=== PATIENT | female | born 1980 | race Caucasian/White ===

== ENCOUNTER 2021-05-08 18:46 | Inpatient (IN) | payer MEDICARE, MEDICAID, SELFPAY ==
[2021-05-08 19:34] VITALS: BP 150/78; PULSE 63; RESP 18; TEMP 37.1; O2SAT 98; BMI 49.9
[2021-05-08 20:49] LABS: COVID-19 Test Negative (Negative)
[2021-05-08 20:53] LABS: Appearance Urine HAZY; Color Urine YELLOW; Glucose Urine UA NEG (NEG); Leukocyte Esterase Urine NEG (NEG); Nitrite Urine NEG (NEG); Specific Gravity - Urine 1.025 (1.005-1.025); UPreg QC Valid YES; Urine Blood NEG (NEG); Urine Ketones NEG (NEG); Urine Pregnancy NEGATIVE (NEGATIVE); Urine Protein NEG (NEG-TRACE)
[2021-05-08 21:02] LABS: Amphetamine Screen Urine Not Detected (Not Detect); Barbiturates, Urine Not Detected (Not Detect); Benzodiazepines Screen Urine Not Detected (Not Detect); Cannabinoid Screen Urine Not Detected (Not Detect); Cocaine Screen Urine Not Detected (Not Detect); Fentanyl, urine Not Detected (Not Detect); Opiate Screen Urine Not Detected (Not Detect); Phencyclidine Screen Urine Not Detected (Not Detect)
[2021-05-08 21:54] LABS: Basophils Percent Auto 0.3 % (0-2); Eosinophils Absolute Auto 0.1 X10*3/uL (0.0-0.4); Eosinophils Percent Auto 0.7 % (0-4); Hematocrit 32.9 % (37.0-47.0); Hemoglobin 10.2 g/dl (12.0-16.0); Imm Gran Abs Auto 0.05 X10*3/uL (0.00-0.03); Imm Gran Pct Auto 0.4 % (0.0-0.4); Lymphocytes Absolute Auto 3.5 X10*3/uL (1.2-4.9); Lymphocytes Percent Auto 25.1 % (20-40); MANUAL DIFF FLAG NO; Mean Corpuscular Hemoglobin 25.8 pg (27.0-33.0); Mean Corpuscular Volume 83.3 fL (80.0-98.0); Mean Platelet Volume 10.7 fL (9.4-12.3); Monocytes Absolute Auto 0.5 X10*3/uL (0.1-1.2); Monocytes Percent Auto 3.5 % (2-11); Neutrophils Absolute Auto 9.8 x10*3/uL (2.0-8.3); Platelet Count 373 X10*3/uL (160-400); Red Blood Count 3.95 X10*6/uL (4.20-5.50); Red Cell Distribution Width 17.4 % (11.0-16.0)
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
[2021-05-08 22:02] LABS: Amorphous Sediment Urine TRACE /LPF; Mucus Urine 1+ /LPF; RBC Urine 0 /HPF (0); Squamous Epithelial Cell Urine 2+ /LPF; WBC Urine 0-2 /HPF (0-4)
[2021-05-08 22:13] LABS: Ethanol < 10 mg/dL
[2021-05-08 22:15] LABS: Anion Gap 11 (12-20); Blood Urea Nitrogen 10 mg/dL (9-16); Carbon Dioxide 23 mmol/L (22-29); Chloride 109 mmol/L (96-108); Creatinine Clr Calc Pharmacy 105.7; Estimated Glomerular Filt Rate > 60; Glucose Random 89 mg/dL (60-115); Potassium 3.5 mmol/L (3.3-5.1); Sodium 139 mmol/L (135-145)
[2021-05-08] MEDS: OLANZapine 10 MG TABLET 20 MG PO (23:08)
[2021-05-09 06:40] VITALS: BP 132/69; PULSE 74; RESP 16; TEMP 37.2; O2SAT 98
--- NOTE | 2021-05-09 06:41 | PC.NURSE ---
Patient slept through the night, no distress reported at this time, patient was out of room x 3, demanding discharges yelling and screaming at staff telling that she was held against her will, medication compliant, patient is paranoid and delusional, care team evaluated the patient, disposition is section 12 inpatient bed search, behavior aggressive, volatile, and labile. will continue to monitor.
--- NOTE | 2021-05-09 07:22 | PC.NURSE ---
patient appears to remain at rest respirations are even and unlabored, patient appears in no distress
[2021-05-09 13:32] VITALS: BP 132/69; PULSE 74
[2021-05-09] MEDS: Losartan Potassium 50 MG TABLET PO (13:32)
[2021-05-09] MEDS: Apixaban 5 MG TABLET PO ×2 (13:32→21:02)
[2021-05-09] MEDS: Acetaminophen 325 MG TABLET 650 MG PO (13:59)
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
--- NOTE | 2021-05-09 15:53 | PC.NURSE ---
rn to rn with jelani.
--- NOTE | 2021-05-09 16:02 | ECG_ITS ---
Test Reason : MED CLEARANCE Blood Pressure : / mmHG Vent. Rate : 063 BPM Atrial Rate : 063 BPM P-R Int : 156 ms QRS Dur : 086 ms QT Int : 428 ms P-R-T Axes : 008 -02 020 degrees QTc Int : 437 ms Normal sinus rhythm Intra-ventricular conduction delay Nonspecific T wave abnormality Abnormal ECG When compared with ECG of 04-APR-2018 20:02, T wave amplitude has decreased in Inferior leads Lateral leads Referred By: Henrik Morse Electronically Signed By:PREM KISER MD
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
[2021-05-09 20:34] VITALS: BP 123/63; PULSE 61; RESP 18; TEMP 35.5; O2SAT 95
[2021-05-09] MEDS: Topiramate 100 MG TABLET 200 MG PO (21:02)
[2021-05-09] MEDS: OLANZapine 10 MG TABLET 20 MG PO (21:02)
[2021-05-09] MEDS: Prazosin HCL 1 MG CAPSULE 2 MG PO (21:02)
[2021-05-10] MEDS: Acetaminophen 325 MG TABLET 650 MG PO (04:26)
[2021-05-10 06:00] VITALS: BP 124/83; PULSE 74; RESP 20; TEMP 36.4; O2SAT 100
[2021-05-10 08:33] LABS: Estimated Average Glucose 103 mg/dL; Hemoglobin A1c % 5.2 %
[2021-05-10 08:34] LABS: D Dimer High Sensitivity < 150 NG/ML
[2021-05-10 08:36] LABS: Alanine Aminotransferase 14 U/L (0-31); Alkaline Phosphatase 83 U/L (39-117); Aspartate Amino Transferase 13 U/L (5-31); Bilirubin Direct < 0.2 mg/dL (0.0-0.5); Bilirubin Total 0.3 mg/dL (0.0-1.0); Cholesterol 170 mg/dL; HDL Cholesterol 51 mg/dL; LDL Cholesterol Calculated 104 mg/dl; Magnesium 2.1 mg/dL (1.6-2.6); Total Protein 6.9 g/dL (6.5-8.0); Triglycerides 78 mg/dL
[2021-05-10 08:57] LABS: TSH reflex Free T4 2.12 uIU/mL (0.32-4.0)
[2021-05-10 09:18] VITALS: BP 124/83; PULSE 100
[2021-05-10] MEDS: Apixaban 5 MG TABLET PO ×2 (09:18→20:37)
[2021-05-10] MEDS: Losartan Potassium 50 MG TABLET PO (09:18)
[2021-05-10 12:45] VITALS: BP 124/83; PULSE 100
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
[2021-05-10 20:25] VITALS: BP 126/72; PULSE 62; RESP 18; TEMP 36.4; O2SAT 97
[2021-05-10 20:36] VITALS: BP 126/72; PULSE 62
[2021-05-10] MEDS: Prazosin HCL 1 MG CAPSULE 2 MG PO (20:36)
[2021-05-10] MEDS: OLANZapine 10 MG TABLET 20 MG PO (20:36)
[2021-05-10] MEDS: Topiramate 100 MG TABLET 200 MG PO (20:36)
[2021-05-10] MEDS: Sennosides 8.6 MG TABLET PO (20:37)
[2021-05-11] MEDS: Magnesium Hydrox/Alum Hydrox 30 ML ORAL.SUSP PO ×3 (02:17→18:27)
[2021-05-11] MEDS: hydrOXYzine HCL 25 MG TABLET PO ×2 (02:17→21:12)
[2021-05-11 06:00] VITALS: BP 119/80; PULSE 100; RESP 16; TEMP 36.2; O2SAT 100
[2021-05-11 08:53] VITALS: BP 119/80; PULSE 100
[2021-05-11] MEDS: Losartan Potassium 50 MG TABLET PO (08:53)
[2021-05-11] MEDS: Apixaban 5 MG TABLET PO ×2 (08:53→21:13)
[2021-05-11] MEDS: Omeprazole 20 MG CAPSULE.DR PO (13:52)
--- NOTE | 2021-05-11 15:20 | HO.PSYCHPN ---
Subjective Subjective Date of Service: 05/11/21 Reason For Visit: psychosis Interim History: Patient seen and discussed. She reports she feels well this morning. She has a history of reflux and takes prilosec at home. Restarted. She denies depression. Denies SI. Denies AVH. She is engaged in the milieu. She is social with peers. Doesn't appear to be paranoid or responding to IS. Review of Systems Review of Systems CVS: No c/o chest pain, palpitations, no SOB [employer]: No c/o dizziness. reports having migraine ZHU. GI: No c/o Nausea, Vomiting, diarrhea, constipation or heartburn Mental Status Exam Mental Status Exam Narrative: Pt was A&O. In hospital attire, not malodorous, overweight. Good eye contact, inattentive. No Tics or Tremors. No abnormal involuntary movements. Somewhat guarded. Non-pressured speech, spontaneous with regular rate and rhythm, normal volume and prosody. No prolonged speech latency or dysarthria. Mood is ?anxious,? affect is constricted. Denies SI/SIB/HI upon inquiry. Denies A/VH or delusional thought content. Thoughts are concrete, linear, has known intellectual disability with IQ <70. Insight/ Judgment limited but adequate. Diagnostics Vital Signs (24Hr): Vital Signs - 24 hr 05/11/21 06:00 05/11/21 08:53 05/11/21 18:00 Temperature 97.1 F 98.2 F Pulse Rate 100 100 77 Respiratory Rate 16 18 Blood Pressure 119/80 119/80 118/72 Pulse Oximetry 100 100 05/11/21 21:12 Temperature Pulse Rate 77 Respiratory Rate Blood Pressure 118/80 Pulse Oximetry Body Mass Index 49.9 Labs Results: 05/08/21 21:48 05/08/21 21:48 Labs: Laboratory Results - last 48 hr 05/10/21 05/10/21 05/10/21 07:51 07:51 07:51 D-Dimer High Sensitivty < 150 Estimat Average Glucose 103 Hemoglobin A1c % 5.2 Magnesium 2.1 Total Bilirubin 0.3 Direct Bilirubin < 0.2 AST 13 ALT 14 Alkaline Phosphatase 83 Total Protein 6.9 Albumin 4.0 Triglycerides 78 Cholesterol 170 LDL Cholesterol, Calc 104 HDL Cholesterol 51 TSH 2.12 Medications Medications Current Medications Acetaminophen (Acetaminophen 325 Mg Tablet) 650 mg PO Q6H PRN PRN Reason: Headache/Pain Mild Scale (1-3) Last Admin: 05/11/21 21:12 Dose: 650 mg Documented by: Al Hydroxide/Mg Hydroxide (Magnesium Hydrox/Alum Hydrox 30 Ml Oral.Susp) 30 ml PO Q6H PRN PRN Reason: Heartburn/Nausea Last Admin: 05/11/21 18:27 Dose: 30 ml Documented by: Apixaban (Apixaban 5 Mg Tablet) 5 mg PO BID MARK Last Admin: 05/11/21 21:13 Dose: 5 mg Documented by: Docusate Sodium (Docusate Sodium 100 Mg Capsule) 100 mg PO BID PRN PRN Reason: Constipation Hydroxyzine HCl (Hydroxyzine Hcl 25 Mg Tablet) 25 mg PO TID PRN PRN Reason: Anxiety Last Admin: 05/11/21 21:12 Dose: 25 mg Documented by: Losartan Potassium (Losartan Potassium 50 Mg Tablet) 50 mg PO DAILY MARK; Protocol Last Admin: 05/11/21 08:53 Dose: 50 mg Documented by: Magnesium Hydroxide (Milk Of Magnesia 30 Ml Oral.Susp) 30 ml PO DAILY PRN PRN Reason: Constipation Nicotine Polacrilex (Nicotine Polacrilex 2 Mg Gum) 2 mg BUCCAL Q2H PRN PRN Reason: Nicotine Cravings Olanzapine (Olanzapine 10 Mg Tablet) 20 mg PO BEDTIME MARK Last Admin: 05/11/21 21:12 Dose: 20 mg Documented by: Omeprazole (Omeprazole 20 Mg Capsule.) 20 mg PO DAILY@0630 [facility] Last Admin: 05/11/21 13:52 Dose: 20 mg Documented by: Prazosin HCl (Prazosin Hcl 1 Mg Capsule) 2 mg PO BEDTIME MARK; Protocol Last Admin: 05/11/21 21:12 Dose: 2 mg Documented by: Senna (Sennosides 8.6 Mg Tablet) 8.6 mg PO BEDTIME MARK Last Admin: 05/11/21 21:13 Dose: 8.6 mg Documented by: Topiramate (Topiramate 100 Mg Tablet) 200 mg PO BEDTIME MARK Last Admin: 05/11/21 21:13 Dose: 200 mg Documented by: Trazodone HCl (Trazodone Hcl 50 Mg Tablet) 50 mg PO BEDTIME PRN PRN Reason: Insomnia Allergies Allergies Allergy/AdvReac Type Severity Reaction Status Date / Time lorazepam [From ATIVAN] Allergy Mild HEART Unverified 03/07/20 19:34 STOPPED codeine [CODEINE] Allergy Unknown SWELLING Unverified 03/07/20 19:34 ziprasidone [From GEODON] Allergy Unknown HEART STOPS Unverified 03/07/20 19:34 Tetanus Vaccines and Toxoid AdvReac Mild HEART Unverified 03/07/20 19:34 [TETANUS VACCINES AND TOXOID] STOPPED Assessment & Plan Assessment & Plan (1) Post traumatic stress disorder (PTSD): Status: Acute Code(s): F43.10 - Post-traumatic stress disorder, unspecified (2) Bipolar 1 disorder: Status: Acute Code(s): F31.9 - Bipolar disorder, unspecified (3) Borderline personality disorder: Status: Acute Code(s): F60.3 - Borderline personality disorder (4) Mild intellectual disability: Status: Acute Code(s): F70 - Mild intellectual disabilities Assessment and Plan: Ashley a 41-year-old female who carries a dx of PTSD, BPD, mild intellectual disability, and bipolar I Disorder. Pt reports she is anxious and is presenting with paranoid delusional thought content. She has a hx of trauma, on prazosin 1 mg QHS and reports she continues to experience nightmares. Willing to trial an increase in prazosin to 2 mg QHS. No other med changes made, will defer to primary team in the AM. Will order lab work. Pt reports multiple somatic complaints, will order TSH, T4, D Dimer sens, Lipids, A1c, PT eval. Monitor response to medications. Monitor for safety in the milieu. Discharge on stabilization. Patient seen. Chart reviewed. Discussed with team. Obtain collateral contact info?as needed I spent minutes with the patient and/or on the patient floor today, greater than?50% of which was spent counseling/coordinating care. Reason for contiued inpatient stay Substantial Risk for: harm to self
[2021-05-11 18:00] VITALS: BP 118/72; PULSE 77; RESP 18; TEMP 36.8; O2SAT 100
[2021-05-11 21:12] VITALS: BP 118/80; PULSE 77
[2021-05-11] MEDS: Prazosin HCL 1 MG CAPSULE 2 MG PO (21:12)
[2021-05-11] MEDS: OLANZapine 10 MG TABLET 20 MG PO (21:12)
[2021-05-11] MEDS: Acetaminophen 325 MG TABLET 650 MG PO (21:12)
[2021-05-11] MEDS: Topiramate 100 MG TABLET 200 MG PO (21:13)
[2021-05-11] MEDS: Sennosides 8.6 MG TABLET PO (21:13)
--- NOTE | 2021-05-11 21:42 | PC.NURSE ---
Patient offered complaints of reproducible chest pain and chills. This nurse contacted physician process control technician to relay information. This nurse was told to give Tylenol and to contact hospitalists if the chest pain does not reduce.
--- NOTE | 2021-05-11 22:24 | ECG_ITS ---
Test Reason : chest pain Blood Pressure : / mmHG Vent. Rate : 088 BPM Atrial Rate : 088 BPM P-R Int : 142 ms QRS Dur : 076 ms QT Int : 514 ms P-R-T Axes : 073 058 082 degrees QTc Int : 621 ms Normal sinus rhythm Nonspecific T wave abnormality Abnormal ECG No significant changes seen Referred By: Sarkis Kang Electronically Signed By:PREM KISER MD
--- NOTE | 2021-05-11 22:59 | PC.NURSE ---
Medical consult ordered. Ekg performed. Hospitalist came and examined patient, ordered labs, trop and D-dimer. EKG was normal sinus.
--- NOTE | 2021-05-11 23:20 | P.CONHOSP_ITS ---
History of Present Illness Data of Consult Service Date: 05/11/21 Primary Care Provider: None Physician HPI 41-year-old female who is currently admitted to [facility] for bipolar disorder complaints of chest pain. We are consulted for evaluation of this chest pain. Patient is sleeping, arousable, reports midsternal burning, sharp reproducible chest pain that started earlier in the evening that has now resolved. Reports that it is worse with deep inspiration otherwise, is nonradiating, about 5/10, no shortness of breath, no palpitations. She denies any nausea vomiting, no abdominal pain, no urinary symptoms, no lower extremity edema, All other review of system it has been negative. Vitals reviewed within normal range Review of Systems Review of Systems: Yes all other systems are reviewed and are negative [facility] Medical History (Updated 05/12/21 @ 05:51 by Stephani Coreas MD) Bipolar 1 disorder Borderline personality disorder Depression Hypertension Post traumatic stress disorder (PTSD) Pertinent family history: No family history of coronary artery disease Surgical History (Updated 05/12/21 @ 05:50 by Stephani Coreas MD) No pertinent past surgical history Social History Household Members: None Household Members Other:: Homeless Housing: Homeless Do you presently have visiting nurse or other home services: Yes Patient Tobacco Use Status: Never used Tobacco Use of substances other than those prescribed or required for medical reasons: No Currently Displaying Signs/Symptoms of Drug Intoxication Withdrawal: No Any prior treatment program specific to substance use: No Have you been hit, kicked, punched, or otherwise hurt by someone within the past year? If so, by whom?: No Do you feel safe in your current relationship?: Yes Is there a partner from a previous relationship who is making you feel unsafe now?: No Are you made to feel afraid or neglected: No Advance Directives: No Healthcare Proxy: Yes Guardian: Yes Do you have thoughts of harming others: None Do you have a plan to hurt others: No Plan Recently lost weight without trying: No Eating poorly because of decreased appetite: No Nutrition Risks: No Nutritional Risk Patient : No : No Poor oral hygiene: No Meds Allergies Allergy/AdvReac Type Severity Reaction Status Date / Time lorazepam [From ATIVAN] Allergy Mild HEART Unverified 03/07/20 19:34 STOPPED codeine [CODEINE] Allergy Unknown SWELLING Unverified 03/07/20 19:34 ziprasidone [From GEODON] Allergy Unknown HEART STOPS Unverified 03/07/20 19:34 Tetanus Vaccines and Toxoid AdvReac Mild HEART Unverified 03/07/20 19:34 [TETANUS VACCINES AND TOXOID] STOPPED Active Medications: Current Medications Acetaminophen (Acetaminophen 325 Mg Tablet) 650 mg PO Q6H PRN PRN Reason: Headache/Pain Mild Scale (1-3) Last Admin: 05/11/21 21:12 Dose: 650 mg Documented by: Al Hydroxide/Mg Hydroxide (Magnesium Hydrox/Alum Hydrox 30 Ml Oral.Susp) 30 ml PO Q6H PRN PRN Reason: Heartburn/Nausea Last Admin: 05/11/21 18:27 Dose: 30 ml Documented by: Apixaban (Apixaban 5 Mg Tablet) 5 mg PO BID MARK Last Admin: 05/11/21 21:13 Dose: 5 mg Documented by: Docusate Sodium (Docusate Sodium 100 Mg Capsule) 100 mg PO BID PRN PRN Reason: Constipation Hydroxyzine HCl (Hydroxyzine Hcl 25 Mg Tablet) 25 mg PO TID PRN PRN Reason: Anxiety Last Admin: 05/11/21 21:12 Dose: 25 mg Documented by: Losartan Potassium (Losartan Potassium 50 Mg Tablet) 50 mg PO DAILY MARK; Protocol Last Admin: 05/11/21 08:53 Dose: 50 mg Documented by: Magnesium Hydroxide (Milk Of Magnesia 30 Ml Oral.Susp) 30 ml PO DAILY PRN PRN Reason: Constipation Nicotine Polacrilex (Nicotine Polacrilex 2 Mg Gum) 2 mg BUCCAL Q2H PRN PRN Reason: Nicotine Cravings Olanzapine (Olanzapine 10 Mg Tablet) 20 mg PO BEDTIME MARK Last Admin: 05/11/21 21:12 Dose: 20 mg Documented by: Omeprazole (Omeprazole 20 Mg Capsule.Dr) 20 mg PO DAILY@0630 [facility] Last Admin: 05/11/21 13:52 Dose: 20 mg Documented by: Prazosin HCl (Prazosin Hcl 1 Mg Capsule) 2 mg PO BEDTIME MARK; Protocol Last Admin: 05/11/21 21:12 Dose: 2 mg Documented by: Senna (Sennosides 8.6 Mg Tablet) 8.6 mg PO BEDTIME MARK Last Admin: 05/11/21 21:13 Dose: 8.6 mg Documented by: Topiramate (Topiramate 100 Mg Tablet) 200 mg PO BEDTIME MARK Last Admin: 05/11/21 21:13 Dose: 200 mg Documented by: Trazodone HCl (Trazodone Hcl 50 Mg Tablet) 50 mg PO BEDTIME PRN PRN Reason: Insomnia Home Medications Medication Instructions Recorded Confirmed Last Taken Type apixaban 5 mg tablet (Eliquis) 1 tab PO BID 05/08/21 05/08/21 Unknown History losartan 50 mg tablet 1 tab PO DAILY 05/08/21 05/08/21 Unknown History olanzapine 20 mg tablet 1 tab PO BEDTIME 05/08/21 05/08/21 Unknown History prazosin 1 mg capsule 1 cap PO BEDTIME 05/08/21 05/08/21 Unknown History topiramate 200 mg tablet 200 mg PO BEDTIME 05/08/21 05/08/21 Unknown History Physical Exam Vital Signs and Narrative: Vital Signs: Last Vital Signs Temp 98.2 F 05/11/21 18:00 Pulse 77 05/11/21 21:12 Resp 18 05/11/21 18:00 BP 118/80 05/11/21 21:12 Pulse Ox 100 05/11/21 18:00 Body Mass Index 49.9 Const: General: cooperative and no acute distress Orientation/consciou sness: patient oriented x3 Eyes: General: appearance normal, both eyes and all related structures Pupils: Equal, round and reactive pupils present Chest: Other: Reproducible midsternal chest pain on palpation Resp: Effort & Inspection: normal respiratory effort and able to speak in complete sentences Auscultation: clear to auscultation bilaterally Cardio: Rate: regular rate Rhythm: regular rhythm GI: Palpation (GI): Soft to palpation Auscultation: normal bowel sounds Skin: General skin exam: no rashes or lesions noted Neuro: General: patient oriented x3 Cranial nerves: Yes Equal, round and reactive pupils present Cognition (Neuro): normal cognition Extrem: General: Yes normal to inspection and Yes no pedal edema Results Labs CBC and Chem 7: 05/08/21 21:48 05/08/21 21:48 Assessment and Plan (1) Chest pain: Status: Acute 41-year-old female with past medical history bipolar, as well as borderline personality disorder who complaints of chest pain # chest pain - most likely secondary to musculoskeletal, very atypical of cardiac - reproducible, changes with inspiration, - troponin negative -patient also reports a personal history of PE, we obtain D-dimer which also negative - at this time continue Tylenol p.r.n. as needed Thank you for this consult, this time will sign off
[2021-05-11 23:35] LABS: Troponin-I High Sensitivity < 3.5 ng/L (<3.5-17.0)
[2021-05-11 23:40] LABS: D Dimer High Sensitivity < 150 NG/ML
--- NOTE | 2021-05-12 | ECG_ITS ---
Test Reason : prolonged qtc Blood Pressure : / mmHG Vent. Rate : 064 BPM Atrial Rate : 064 BPM P-R Int : 140 ms QRS Dur : 082 ms QT Int : 412 ms P-R-T Axes : 036 -02 047 degrees QTc Int : 425 ms Normal sinus rhythm Nonspecific T wave abnormality Abnormal ECG When compared with ECG of 11-MAY-2021 23:29, Questionable change in QRS axis Nonspecific T wave abnormality, improved in Inferior leads QT has shortened Referred By: Michi Lange Electronically Signed By:PREM KISER MD
[2021-05-12 05:13] LABS: Folate 5.5 ng/mL (> or = 4.0); Vitamin B12 259 pg/mL (200-900)
[2021-05-12 08:03] VITALS: BP 136/78; PULSE 80; RESP 16; TEMP 36.6; O2SAT 100
[2021-05-12 08:05] VITALS: BP 136/78; PULSE 80
[2021-05-12] MEDS: Omeprazole 20 MG CAPSULE.DR PO (08:05)
[2021-05-12] MEDS: Magnesium Hydrox/Alum Hydrox 30 ML ORAL.SUSP PO (08:05)
[2021-05-12] MEDS: Losartan Potassium 50 MG TABLET PO (08:05)
[2021-05-12] MEDS: Apixaban 5 MG TABLET PO (08:05)
[2021-05-12] MEDS: Milk of Magnesia 30 ML ORAL.SUSP PO (08:05)
--- NOTE | 2021-05-12 11:13 | PC.NURSE ---
Patient offered flu vaccine and patient declined.
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
--- NOTE | 2021-05-12 13:00 | PC.NURSE ---
Patient is in agreement and verbally understood discharge instructions. Patient denies SI/HI/AH/VH. Patient denies anxiety or depression. Patient states i just want to go home. I am ready for my discharge . Patient denies complaints at this time.
== END 2021-05-12 12:50 | disposition home or self-care (01) | DRG 880 ==
LOC: HO.ED 05-09 16:18 → HO.PADLT16 05-09 16:47
PROVIDERS: Internal Medicine; Registered Nurse; Admitting Provider Psychiatry & Neurology Psychiatry; Emergency Provider Emergency Medicine; Visit Provider Psychiatry & Neurology Psychiatry
DX: F41.9 Anxiety disorder, unspecified (principal); R45.851 Suicidal ideations; Z68.43 Body mass index [BMI] 50.0-59.9, adult; F31.9 Bipolar disorder, unspecified; F43.10 Post-traumatic stress disorder, unspecified; Z20.822 Contact with and (suspected) exposure to COVID-19; E66.3 Overweight; F60.3 Borderline personality disorder; F70 Mild intellectual disabilities; Z59.02 Unsheltered homelessness; Z88.5 Allergy status to narcotic agent; Z79.01 Long term (current) use of anticoagulants; Z79.899 Other long term (current) drug therapy
CPT/HCPCS: 36415; 80048; 80061; 80076; 80307; 81001; 81025; 82077; 82607; 82746; 83036; 83735; 84443; 84484; 85025; 85379; 87635; 93005; 97161; 99285

== ENCOUNTER 2023-03-07 16:12 | Emergency (ER) | payer OTHER, SELFPAY ==
--- NOTE | ~2023-03-07 | XR_ITS ---
EXAMINATION: XR ABDOMEN KUB CLINICAL INDICATION: No bowel movement x18 days and feels bloated COMPARISON: None available. TECHNIQUE: AP view of the abdomen. FINDINGS: Stool and air seen throughout the colon to the rectum. I do not appreciate a significant amount of dense stool. No significant small bowel dilatation and no obstructive changes. IUD noted. XR/XR KUB IMPRESSION: Unremarkable bowel gas pattern. No significant stool burden.
[2023-03-07 16:24] VITALS: BP 134/79; BP 138/107; PULSE 62; PULSE 83; RESP 18; TEMP 37.1; O2SAT 100; O2SAT 97; BMI 50.8
--- NOTE | 2023-03-07 17:00 | ED_ITS ---
HPI - Abdominal Pain General Chief Complaint: Abdominal Pain Stated Complaint: ABD PAIN Time Seen by Provider: 03/07/23 16:58 Source: patient Mode of arrival: EMS Limitations: no limitations History of Present Illness HPI narrative: Patient with history of anxiety PTSD comes here that she been constipated for last 18 days also has difficulty in urinating for last 5 days occasional nausea occasional vomiting for last 4 days patient feels bloated no history of constipation before no history of any narcotics use Related Data Home Medications Medication Instructions Recorded Confirmed apixaban 5 mg tablet (Eliquis) 1 tab PO BID 05/08/21 05/08/21 losartan 50 mg tablet 1 tab PO DAILY 05/08/21 05/08/21 olanzapine 20 mg tablet 1 tab PO BEDTIME 05/08/21 05/08/21 topiramate 200 mg tablet 200 mg PO BEDTIME 05/08/21 05/08/21 Previous Rx's Medication Instructions Recorded omeprazole 20 mg capsule,delayed 20 mg PO DAILY@0630 30 days #30 05/12/21 release caps prazosin 1 mg capsule 2 mg PO BEDTIME 30 days #60 caps 05/12/21 sennosides 8.6 mg tablet (Senna 8.6 mg PO BEDTIME 30 days #30 tabs 05/12/21 Lax) cefuroxime axetil 500 mg tablet 500 mg PO BID 7 days #14 tabs 03/07/23 polyethylene glycol 3350 17 17 g PO DAILY #510 grams 03/07/23 gram/dose oral powder (Miralax) Allergies Allergy/AdvReac Type Severity Reaction Status Date / Time lorazepam [From ATIVAN] Allergy Mild HEART Unverified 03/07/20 19:34 STOPPED codeine [CODEINE] Allergy Unknown SWELLING Unverified 03/07/20 19:34 ziprasidone [From GEODON] Allergy Unknown HEART STOPS Unverified 03/07/20 19:34 Tetanus Vaccines and Toxoid AdvReac Mild HEART Unverified 03/07/20 19:34 [TETANUS VACCINES AND TOXOID] STOPPED Review of Systems Review of Systems Yes all other systems are reviewed and are negative [facility] Past Medical History Medical History (Updated 03/07/23 @ 19:18 by Chino Hager MD) Pulmonary embolism DVT (deep venous thrombosis) Borderline personality disorder Bipolar 1 disorder Post traumatic stress disorder (PTSD) Depression Hypertension Surgical History No pertinent past surgical history Social History Social History Household Members: None Household Members Other:: Homeless Housing: Homeless Do you presently have visiting nurse or other home services: Yes Patient Tobacco Use Status: Never used Tobacco Smoked in Last 30 Days: No Use of substances other than those prescribed or required for medical reasons: No Advance Directives: Yes Advance Directives Information Provided: No Advance Directives on File: No service: No Sexual orientation: Straight/Heterosexual Physical Exam ED Vital Signs: Vital Signs - 24 hr 03/07/23 16:24 Temperature 98.8 F Pulse Rate 62 Respiratory Rate 18 Blood Pressure 134/79 Pulse Oximetry 100 Oxygen Delivery Method Room Air BMI result Body Mass Index 50.8 Appearance: Alert. Oriented X3. No acute distress. Obese Eyes: PERRLA, No Nystagmus ENT: Pharynx normal. Oral Mucosa moist Neck: Normal inspection. Neck supple. CVS: Normal heart rate and rhythm. Pulses normal. Respiratory: No respiratory distress. Equal air entry bilateral, no wheezing/rales/rhonchi Abdomen: Soft and nontender. Bowel sounds are present, no mass palpable, no CVA tenderness rectal: No stool palpable, empty rectum Skin: Skin warm and dry. Normal skin color. Normal skin turgor. Extremities: No lower extremity edema. No calf tenderness Neuro: Oriented X 3. No motor deficit. No sensory deficit.No cerebellar signs , cranial nerves II-XII intact Medical Decision Making Medical Decision Making [facility] Narrative: Patient constipation kv did not show significant burden soft stool rectum was empty discharge patient home patient was given milk a magnesia in the ER also noted that patient has UTI uncomplicated will give her Ceftin Differential Diagnosis Differential Diagnoses: The differential diagnosis associated with the presentation includes Fecal impaction/small bowel obstruction Lab Data [facility] Lab Attestation statement: I reviewed the patient's lab results. Labs: Lab Results 03/07/23 Range/Units 17:26 Urine Color Yellow Urine Appearance Cloudy Urine pH 6.0 (5.0-9.0) Ur Specific Mark 1.015 (1.005-1.025) Urine Protein Negative (Neg-Trace) mg/dL Urine Glucose (UA) Negative (Negative) mg/dL Urine Ketones Negative (Negative) mg/dL Urine Blood Large (3+) H (Negative) Urine Nitrite Negative (Negative) Ur Leukocyte Esterase Large (3+) H (Negative) Urine RBC >20 H (0-2) /HPF Urine WBC >50 H (0-5) /HPF Ur Squamous Epith Cells 11-20 (0-2) /HPF Urine Bacteria 1+ (None Seen) Hyaline Casts 0-2 (0-2) /LPF Medications Administered Discontinued Medications Generic Name Dose Route Start Last Admin Trade Name Kate PRN Reason Stop Dose Admin Bisacodyl 10 mg 03/07/23 17:08 03/07/23 17:27 Bisacodyl 5 Mg Tablet.Dr PO 03/07/23 17:09 10 mg ONCE ONE Administration Magnesium Hydroxide 30 ml 03/07/23 17:08 03/07/23 17:27 Milk Of Magnesia 30 Ml Oral.Susp PO 03/07/23 17:09 30 ml ONCE ONE Administration Discharge Plan Discharge Clinical Impression: Constipation, UTI (urinary tract infection) Patient Disposition: Home, Self-Care Instructions: Constipation (ED), Urinary Tract Infection in Women (ED) Additional Instructions: Drink plenty of fluids Take MiraLax daily for constipation Antibiotic as prescribed for UTI Follow-up with your PCP Prescriptions: New polyethylene glycol 3350 [Miralax] 17 gram/dose powder 17 g PO DAILY Qty: 510 0RF cefuroxime axetil 500 mg tablet 500 mg PO BID 7 Days Qty: 14 0RF No Action losartan 50 mg tablet 1 tab PO DAILY topiramate 200 mg tablet 200 mg PO BEDTIME olanzapine 20 mg tablet 1 tab PO BEDTIME Eliquis 5 mg tablet 1 tab PO BID sennosides [Senna Lax] 8.6 mg Tablet 8.6 mg PO BEDTIME 30 Days Qty: 30 0RF prazosin 1 mg Capsule 2 mg PO BEDTIME 30 Days Qty: 60 0RF Protocol: Hold for SBP< HOLD for SBP < : 90 omeprazole 20 mg Capsule,Delayed Release(Dr/Ec) 20 mg PO DAILY@0630 30 Days Qty: 30 0RF
[2023-03-07] MEDS: Milk of Magnesia 30 ML ORAL.SUSP PO (17:27)
[2023-03-07] MEDS: bisacodyL 5 MG TABLET.DR 10 MG PO (17:27)
[2023-03-07 17:44] LABS: Appearance Urine Cloudy; Color Urine Yellow; Glucose Urine UA Negative (Negative); Leukocyte Esterase Urine Large (3+) (Negative); Nitrite Urine Negative (Negative); Specific Gravity - Urine 1.015 (1.005-1.025); UMIC TRIGGER UACC YES; Urine Blood Large (3+) (Negative); Urine Ketones Negative (Negative); Urine Protein Negative (Neg-Trace)
[2023-03-07 17:51] LABS: Bacteria Urine 1+ (None Seen); Hyaline Casts Urine 0-2 /LPF (0-2); RBC Urine >20 /HPF (0-2); UACC Culture Trigger YES; WBC Urine >50 /HPF (0-5)
[2023-03-07] MEDS: traMADoL HCL 50 MG TABLET PO (19:22)
[2023-03-07] MEDS: polyethylene glycoL 3350 17 GM POWD.PACK PO (19:22)
[2023-03-07 19:28] VITALS: BP 155/81; PULSE 68; RESP 16; TEMP 36.9; O2SAT 98
== END 2023-03-07 19:30 | disposition home or self-care (01) ==
PROVIDERS: Emergency Provider Internal Medicine
DX: N39.0 Urinary tract infection, site not specified (principal); K59.00 Constipation, unspecified; R30.0 Dysuria; F41.1 Generalized anxiety disorder; F43.0 Acute stress reaction; Z79.01 Long term (current) use of anticoagulants; Z79.899 Other long term (current) drug therapy
CPT/HCPCS: 51798; 74018; 81001; 87086; 99285

== ENCOUNTER 2023-05-01 14:07 | Emergency (ER) | payer OTHER, MEDICAID, SELFPAY ==
--- NOTE | ~2023-05-01 | XR_ITS ---
EXAMINATION: XR CHEST CLINICAL INFORMATION: Chest pain. COMPARISON: 04/04/2018. TECHNIQUE: 2 views of the chest were obtained. FINDINGS: No significant abnormality is noted involving the heart, lungs, mediastinum, or soft tissues. Mild degenerative changes of the spine. XR/XR chest 2V IMPRESSION: Unremarkable examination.
--- NOTE | ~2023-05-01 | XR_ITS ---
Indication: Fall, pain EXAMINATION: Right ankle, right foot. 2 views detailed of the right ankle do not show fracture or dislocation. 3 views of the right foot to include lateral ankle does not demonstrate evidence for fracture or dislocation. Spurring in the posterior calcaneus is noted. XR/XR ankle RT min 3V IMPRESSION: No acute fracture or dislocation right ankle, right foot.
--- NOTE | ~2023-05-01 | CT_ITS ---
EXAMINATION: CT HEAD WITHOUT CONTRAST CT FACE WITHOUT CONTRAST CLINICAL INFORMATION: Head injury. Lightheadedness. COMPARISON: No relevant prior imaging. TECHNIQUE: Sanitary Aide images were obtained. CT imaging of the head and face was performed without contrast. Data was reformatted into multiplanar images at the acquisition workstation. This CT examination was performed using dose optimization techniques as appropriate, including one or more of the following: Automated exposure control, iterative reconstruction, and adjustment of technique factors (mA and/or kVp) according to patient size (this includes techniques or standardized protocols for targeted exams where dose is matched to indication/reason for exam). Fleischner Society criteria for the followup of incidental pulmonary nodules was implemented if appropriate. DLP: 1316 mGy-cm. FINDINGS: Head: There is no acute intracranial hemorrhage or abnormal extra-axial collection. No intracranial mass effect or midline shift. Lateral and third ventricles are normal. No hydrocephalus. Villavicencio-white matter differentiation is preserved and there is no evidence of acute territorial infarct. The calvarium and skull base are intact. Mastoid air cells and middle ear cavities are well aerated. No active paranasal sinus disease. Globes and orbits are symmetric. Face: Nasal bones, zygomatic arches, and pterygoid processes are intact. There is no acute mandibular fracture. Globes and extraocular muscles are symmetric. No abnormal retrobulbar are inflammation or hematoma. The lamina papyracea and orbital floors are intact. Orbital apices are unremarkable. There is no active paranasal sinus disease. All of the major paranasal sinus drainage pathways are patent. CT/CT facial bones wo IV con IMPRESSION: Normal CT scan of the head and facial bones.
--- NOTE | ~2023-05-01 | XR_ITS ---
Indication: Fall, pain EXAMINATION: Right ankle, right foot. 2 views detailed of the right ankle do not show fracture or dislocation. 3 views of the right foot to include lateral ankle does not demonstrate evidence for fracture or dislocation. Spurring in the posterior calcaneus is noted. XR/XR foot RT min 3V IMPRESSION: No acute fracture or dislocation right ankle, right foot.
[2023-05-01 14:23] VITALS: BP 146/74; BP 152/82; PULSE 69; PULSE 88; RESP 13; TEMP 36.8; O2SAT 98; O2SAT 99; BMI 50.3
--- NOTE | 2023-05-01 14:23 | ECG_ITS ---
Test Reason : SYNCOPE Blood Pressure : / mmHG Vent. Rate : 058 BPM Atrial Rate : 058 BPM P-R Int : 148 ms QRS Dur : 082 ms QT Int : 386 ms P-R-T Axes : 039 -06 -19 degrees QTc Int : 378 ms Sinus bradycardia Nonspecific T wave abnormality Abnormal ECG When compared with ECG of 12-MAY-2021 11:21, Nonspecific T wave abnormality, worse in Inferior leads Lateral leads Referred By: Fanny Epps Electronically Signed By:PREM KISER MD
--- NOTE | 2023-05-01 14:40 | ED_ITS ---
HPI - General Adult General Chief complaint: Fall Stated complaint: FALL AT HOME Time Seen by Provider: 05/01/23 14:22 Source: patient and EMS Mode of arrival: EMS Limitations: no limitations History of Present Illness HPI narrative: patient is a 43-year-old female who presents to the emergency department for evaluation after multiple syncopal episodes. She states that yesterday she was in the shower when she started to feel lightheaded and she fell backwards striking her head. she reports loss of consciousness for unknown duration. She states that she awoke and noted the water to the face. She presented for evaluation to [facility], but she left the waiting room without being seen. She reports a similar episode today she was in the shower and she began feeling lightheaded described as is seeing double and feeling faint. She states that she dizzy and falling forward and she struck her head onto the shower and a again syncopized Ng and awaking with the water running on her again. She states that she has had similar episodes like this in the past, it is unclear whether this is typical of seizure activity for her. When asked what is usual of her seizure activity she states that she typically is shaking in the knee give way and she falls to the ground. At this point she does state that she recalls shaking prior to both syncopal episodes in the shower. She states she is compliant with her seizure medication, Zonisamide. she also reports that she is anticoagulated on Eliquis due to a blood clot in the heart that was found in 2021 at [facility]. currently, she reports a right frontal headache, denies dizziness or lightheadedness, denies neck pain or neck stiffness, reports pain to the right jaw without fractured or loose dentition, pain to the right ankle and foot. denies chest pain, shortness of breath, nausea, vomiting, abdominal pain. Reports that she lives alone. Related Data Home Medications Medication Instructions Recorded Confirmed apixaban 5 mg tablet (Eliquis) 1 tab PO BID 05/08/21 05/08/21 losartan 50 mg tablet 1 tab PO DAILY 05/08/21 05/08/21 olanzapine 20 mg tablet 1 tab PO BEDTIME 05/08/21 05/08/21 topiramate 200 mg tablet 200 mg PO BEDTIME 05/08/21 05/08/21 Previous Rx's Medication Instructions Recorded omeprazole 20 mg capsule,delayed 20 mg PO DAILY@0630 30 days #30 05/12/21 release caps prazosin 1 mg capsule 2 mg PO BEDTIME 30 days #60 caps 05/12/21 sennosides 8.6 mg tablet (Senna 8.6 mg PO BEDTIME 30 days #30 tabs 05/12/21 Lax) cefuroxime axetil 500 mg tablet 500 mg PO BID 7 days #14 tabs 03/07/23 polyethylene glycol 3350 17 17 g PO DAILY #510 grams 03/07/23 gram/dose oral powder (Miralax) Allergies Allergy/AdvReac Type Severity Reaction Status Date / Time lorazepam [From ATIVAN] Allergy Mild HEART Unverified 03/07/20 19:34 STOPPED codeine [CODEINE] Allergy Unknown SWELLING Unverified 03/07/20 19:34 ziprasidone [From GEODON] Allergy Unknown HEART STOPS Unverified 03/07/20 19:34 Tetanus Vaccines and Toxoid AdvReac Mild HEART Unverified 03/07/20 19:34 [TETANUS VACCINES AND TOXOID] STOPPED Review of Systems 2 Review of Systems: Yes all other systems are reviewed and are negative [facility] Past Medical History Attestation statement: The following information was validated with the patient. Source: old records reviewed Medical History Pulmonary embolism DVT (deep venous thrombosis) Borderline personality disorder Bipolar 1 disorder Post traumatic stress disorder (PTSD) Depression Hypertension Surgical History No pertinent past surgical history Social History Social History Household Members: None Household Members Other:: Homeless Housing: Homeless Do you presently have visiting nurse or other home services: Yes Patient Tobacco Use Status: Never used Tobacco Advance Directives: Yes Advance Directives Information Provided: No Advance Directives on File: No service: No Sexual orientation: Straight/Heterosexual Physical Exam ED Vital Signs: Vital Signs - 24 hr 05/01/23 14:23 05/01/23 16:47 05/01/23 16:47 Temperature 98.3 F Pulse Rate 69 56 65 Respiratory Rate 13 Blood Pressure 146/74 H 135/83 151/83 H Pulse Oximetry 99 Oxygen Delivery Method Room Air 05/01/23 19:31 Temperature 98.2 F Pulse Rate 68 Respiratory Rate 20 Blood Pressure 148/76 H Pulse Oximetry 99 Oxygen Delivery Method Room Air BMI result Body Mass Index 50.3 Appearance: Alert.?Oriented to person, place and time. No acute distress.?Normal affect. Eyes: Pupils equal, round and reactive to light.?EOMi. no nystagmus. No raccoon eyes ENT: Pharynx normal.?? No King sign. Neck: Normal inspection.? Neck supple.?? no midline cervical spine tenderness, step-offs, deformities. CVS: Heart sounds normal. Normal heart rate and rhythm.? Pulses normal.?? Respiratory: No respiratory distress.? Lung sounds clear to auscultation bilaterally?? Abdomen: Soft and non-tender. Normoactive bowel sounds. Skin: Skin warm and dry.? Normal skin color.? Extremities: No lower extremity edema.? No calf ttp. no obvious deformity to the right ankle. 2+ DP/ PT pulse bilaterally Neuro: Moves all extremities spontaneously. Sensation intact bilaterally. No focal neuro deficits. Course Reevaluation(s) Reevaluation #1: CBC is without leukocytosis, microcytic anemia not needing transfusion criteria. EKG revealing a nonspecific T-wave inversions as noted in MDM, high sensitive troponin below detectable limits. ETOH level of 12, she adamantly denies any alcohol consumption. COVID-19 and influenza testing are negative. CPK of 435 without SANDRINE, treated with 2 L normal saline IVF. LFTs are elevated, no right upper quadrant tenderness upon palpation, do not feel requires further workup in the emergency. CT of the head In facial bone without acute intracranial pathology or fracture. Chest x-ray without acute cardiopulmonary process. XR of the right ankle and foot is without fracture or dislocation. I discussed this case with ED attending Dr. Bruno, he recommends hospital admission for cardiac monitoring, concern for potential underlying arrhythmia given 2 episodes syncope and at abnormal EKG. will consult with hospitalist service Dr. Coreas for admission. Time: 17:38 Reevaluation #2: Hospitalist Dr. Coreas has reviewed this case. She does not feel as though hospital admission is warranted at this time upon review of patient case, she came to bedside to evaluate patient as well. Time: 17:55 Reevaluation #3: Patient able to ambulate at this time, steady gait. weight bearing without difficulty. Given elevated CPK, plan to repeat after IVF, will obtain delta troponin at the same time. If both normal anticipate discharge home, [facility] with acetaminophen. ibuprofen. Patient signed out to Deana Rand pending repeat labs and urinalysis Time: 19:00 Additional Reevaluation(s): 20:23 Patient received in sign out from GEORGE Escobedo. Patient agreed to waiting for recheck of labs, but is stating she wishes to leave against medical advice prior to labs being resulted. Discussed risks of leaving prior to completion of evaluation with patient up to including . Patient signed AMA form. Advised patient she can return to the emergency department at any time. Patient verbalized understanding of this. Medications Administered Discontinued Medications Generic Name Dose Route Start Last Admin Trade Name Freq PRN Reason Stop Dose Admin Acetaminophen 975 mg 05/01/23 15:56 05/01/23 16:19 Acetaminophen 325 Mg Tablet PO 05/01/23 15:57 975 mg ONCE ONE Administration Sodium Chloride 1,000 mls @ 999 mls/hr 05/01/23 16:30 05/01/23 20:11 Ns IV 05/01/23 17:30 Infused .Q1H1M MARK Infusion Sodium Chloride 1,000 mls @ 999 mls/hr 05/01/23 16:30 05/01/23 19:18 Ns IV 05/01/23 17:30 Infused .Q1H1M MARK Infusion Medical Decision Making Medical Decision Making [facility] Narrative: Patient is a 43 year female with past medical history of DVT/ PE on Eliquis, borderline personality disorder, bipolar disorder, PTSD, depression, hypertension, seizure disorder presented to the emergency department for evaluation after 2 syncopal episodes yesterday and today. At the time my examination she has no focal neurological deficits. She has palpable tenderness to the right frontal forehead without obvious hematoma or ecchymosis, pain upon palpation diffusely across the right lower jaw without obvious deformity, clicking, notable loose dentition. No midline cervical spine tenderness, step- offs, deformities. Diffuse pain with light palpation to the right ankle and foot, no obvious deformity, no swelling, 2+ DP/ PT pulse bilaterally, not actively ranging the ankle or foot reportedly due to pain, full passive range of motion. Will obtain CBC to evaluate for leukocytosis/ anemia, CMP and lipase to evaluate for abnormal electrolytes /abnormal renal function/ abnormal hepatic/biliary function, CPK, EKG and troponin to evaluate for ischemia/ACS. Chest x-ray to evaluate for consolidation/ infiltrate/ mass/ pulmonary congestion and Urinalysis. Toxicology testing, XR of the right ankle to exclude fracture dislocation, CT of the head and facial bones to exclude ICH, SDH, fracture. Differential Diagnosis Differential Diagnoses: The differential diagnosis associated with the presentation includes ( vasovagal syncope versus ACS versus pulmonary embolism versus seizure, in addition to those noted above) Admission/Observation Consideration of admission/observation: Escalation of care including admission/observation considered Lab Data MDM Lab Attestation statement: I reviewed the patient's lab results. (See course narrative for further detail) 05/01/23 15:18 05/01/23 15:18 Labs: Lab Results 05/01/23 Range/Units 15:18 WBC 8.0 (4.8-10.8) X10*3/uL RBC 4.34 (4.20-5.50) X10*6/uL Hgb 11.4 L (12.0-16.0) g/dl Hct 35.7 L (37.0-47.0) % MCV 82.3 (80.0-98.0) fL MCH 26.3 L (27.0-33.0) pg MCHC 31.9 (31.0-35.0) g/dl RDW 19.0 H (11.0-16.0) % Plt Count 342 (160-400) X10*3/uL MPV 10.0 (9.4-12.3) fL Immature Gran % (Auto) 0.2 (0.0-0.4) % Neut % (Auto) 51.9 (45-73) % Lymph % (Auto) 35.9 (20-40) % [place] % (Auto) 5.9 (2-11) % Eos % (Auto) 5.7 H (0-4) % Baso % (Auto) 0.4 (0-2) % Lymph # (Auto) 2.9 (1.2-4.9) X10*3/uL [place] # (Auto) 0.5 (0.1-1.2) X10*3/uL Eos # (Auto) 0.5 H (0.0-0.4) X10*3/uL Baso # (Auto) 0.0 (0.0-0.2) X10*3/uL Abs Immat Gran (auto) 0.02 (0.00-0.03) X10*3/uL Absolute Neuts (auto) 4.2 (2.0-8.3) x10*3/uL Absolute Nucleated RBC 0.000 (0.0-0.012) X10*3/uL Nucleated RBC % (auto) 0.0 (0.0-0.2) /100WBC PT 13.0 (11.1-13.3) SEC INR 1.1 (0.9-1.1) Sodium 143 (135-145) mmol/L Potassium 4.2 (3.3-5.1) mmol/L Chloride 116 H (96-108) mmol/L Carbon Dioxide 19 L (22-29) mmol/L Anion Gap 12 (12-20) BUN 13 (9-16) mg/dL Creatinine 0.84 (0.5-1.4) mg/dL Estim Creat Clear Calc 118.9 Estimated GFR > 60 Random Glucose 82 (60-115) mg/dL Calcium 9.2 (8.4-10.2) mg/dL Magnesium 2.4 (1.6-2.6) mg/dL Total Bilirubin 0.4 (0.0-1.0) mg/dL AST 123 H (5-31) U/L ALT 111 H (0-31) U/L Alkaline Phosphatase 166 H (39-117) U/L Total Creatine Kinase 435 H (26-140) U/L Troponin I High Sens < 2.7 (<3.5-17.0) ng/L Total Protein 7.5 (6.5-8.0) g/dL Albumin 3.9 (3.5-5.0) g/dL Ethyl Alcohol 12 mg/dL COVID-19 (CIRILO) Negative (Negative) COVID-19 Clin Com See Note Influenza Type A (YOHAN) Negative (Negative) Influenza Type B (YOHAN) Negative (Negative) Influenza A & B Note See Note Independent Interpretation I performed an independent interpretation of an: EKG and Plain X-Ray ( I personally interpreted XR imaging of the chest and right ankle and agree with radiologist impression) Interpretation: Rate:58 Rhythm:? sinus bradycardia Normal P waves.? Normal LUCIUS.?? Normal QRS complex.?? ST T wave :?? no ST elevation, no ST depression. T-wave inversion in AVF, V3- V6, artifact present in lead II-III but possible T wave inversion qTC: 378 The study has been interpreted contemporaneously by me. Radiology Impression Discussion of test interpretation with radiology: I have reviewed the radiologist's reading. Radiologist Impression: CT/CT head/brain wo IV con IMPRESSION: Normal CT scan of the head and facial bones. XR/XR chest 2V IMPRESSION: Unremarkable examination. XR/XR foot RT min 3V IMPRESSION: No acute fracture or dislocation right ankle, right foot. Independent Historian Clinical information obtained from an independent historian. History obtained from or confirmed by: EMS Discharge Plan Discharge Clinical Impression: Syncope Patient Disposition: Left Against Medical Advice Prescriptions: No Action losartan 50 mg tablet 1 tab PO DAILY topiramate 200 mg tablet 200 mg PO BEDTIME olanzapine 20 mg tablet 1 tab PO BEDTIME Eliquis 5 mg tablet 1 tab PO BID sennosides [Senna Lax] 8.6 mg Tablet 8.6 mg PO BEDTIME 30 Days Qty: 30 0RF prazosin 1 mg Capsule 2 mg PO BEDTIME 30 Days Qty: 60 0RF Protocol: Hold for SBP< HOLD for SBP < : 90 omeprazole 20 mg Capsule,Delayed Release(Dr/Ec) 20 mg PO DAILY@0630 30 Days Qty: 30 0RF polyethylene glycol 3350 [Miralax] 17 gram/dose powder 17 g PO DAILY Qty: 510 0RF cefuroxime axetil 500 mg tablet 500 mg PO BID 7 Days Qty: 14 0RF Stand Alone Forms: Against Medical Advice
[2023-05-01 15:25] LABS: MANUAL DIFF FLAG NO
[2023-05-01 15:26] LABS: Basophils Percent Auto 0.4 % (0-2); Eosinophils Absolute Auto 0.5 X10*3/uL (0.0-0.4); Eosinophils Percent Auto 5.7 % (0-4); Hematocrit 35.7 % (37.0-47.0); Hemoglobin 11.4 g/dl (12.0-16.0); Imm Gran Abs Auto 0.02 X10*3/uL (0.00-0.03); Imm Gran Pct Auto 0.2 % (0.0-0.4); Lymphocytes Absolute Auto 2.9 X10*3/uL (1.2-4.9); Lymphocytes Percent Auto 35.9 % (20-40); Mean Corpuscular HGB Conc 31.9 g/dl (31.0-35.0); Mean Corpuscular Hemoglobin 26.3 pg (27.0-33.0); Mean Corpuscular Volume 82.3 fL (80.0-98.0); Monocytes Absolute Auto 0.5 X10*3/uL (0.1-1.2); Monocytes Percent Auto 5.9 % (2-11); Neutrophils Absolute Auto 4.2 x10*3/uL (2.0-8.3); Neutrophils Percent Auto 51.9 % (45-73); Platelet Count 342 X10*3/uL (160-400); Red Blood Count 4.34 X10*6/uL (4.20-5.50)
[2023-05-01 15:31] LABS: INTERNATIONAL NORM RATIO 1.1 (0.9-1.1)
[2023-05-01 15:46] LABS: COVID-19 Test Negative (Negative); IDNOW Serial# 08D9AD1C; IDNOW Serial# 6674DD1D; Influenza A Negative (Negative); Influenza B2 Negative (Negative)
[2023-05-01 15:47] LABS: Ethanol 12 mg/dL
[2023-05-01 15:52] LABS: Alanine Aminotransferase 111 U/L (0-31); Albumin Level 3.9 g/dL (3.5-5.0); Alkaline Phosphatase 166 U/L (39-117); Anion Gap 12 (12-20); Aspartate Amino Transferase 123 U/L (5-31); Bilirubin Total 0.4 mg/dL (0.0-1.0); Blood Urea Nitrogen 13 mg/dL (9-16); Calcium 9.2 mg/dL (8.4-10.2); Carbon Dioxide 19 mmol/L (22-29); Chloride 116 mmol/L (96-108); Creatinine Clr Calc Pharmacy 118.9; Estimated Glomerular Filt Rate > 60; Glucose Random 82 mg/dL (60-115); Magnesium 2.4 mg/dL (1.6-2.6); Potassium 4.2 mmol/L (3.3-5.1); Sodium 143 mmol/L (135-145); Total Protein 7.5 g/dL (6.5-8.0)
[2023-05-01 16:01] LABS: Troponin-I High Sensitivity < 2.7 ng/L (<3.5-17.0)
[2023-05-01] MEDS: Acetaminophen 325 MG TABLET 975 MG PO (16:19)
[2023-05-01 16:47] VITALS: BP 135/83; BP 151/83; PULSE 56; PULSE 65
[2023-05-01] MEDS: 0.9 % Sodium Chloride 1,000 ML 999 ML IV ×2 (17:28→17:31)
[2023-05-01 19:31] VITALS: BP 148/76; PULSE 68; RESP 20; TEMP 36.8; O2SAT 99
[2023-05-01 20:23] LABS: Appearance Urine Cloudy; Color Urine Yellow; Glucose Urine UA Negative (Negative); Leukocyte Esterase Urine Moderate (2+) (Negative); Nitrite Urine Negative (Negative); Specific Gravity - Urine >= 1.030 (1.005-1.025); UMIC TRIGGER UACC YES; Urine Blood Negative (Negative); Urine Ketones Negative (Negative); Urine Protein Negative (Neg-Trace)
--- NOTE | 2023-05-01 20:27 | PC.NURSE ---
Patient states can't wait for results because she has seizure, and bipolar meds to take and she missed them yesterday. Left against medical advice.
[2023-05-01 20:28] LABS: Bacteria Urine 3+ (None Seen); Hyaline Casts Urine 0-2 /LPF (0-2); RBC Urine 0-2 /HPF (0-2); UACC Culture Trigger YES; WBC Urine 21-50 /HPF (0-5)
[2023-05-01 20:31] LABS: Amphetamine Screen Urine Not Detected (Not Detect); Barbiturates, Urine Not Detected (Not Detect); Benzodiazepines Screen Urine Not Detected (Not Detect); Cannabinoid Screen Urine Not Detected (Not Detect); Cocaine Screen Urine Not Detected (Not Detect); Fentanyl, urine Not Detected (Not Detect); Opiate Screen Urine Not Detected (Not Detect); Phencyclidine Screen Urine Not Detected (Not Detect)
[2023-05-01 20:49] LABS: Troponin-I High Sensitivity < 2.7 ng/L (<3.5-17.0)
== END 2023-05-01 20:32 | disposition left against medical advice (07) ==
PROVIDERS: Nurse Practitioner Family; Emergency Provider Emergency Medicine Emergency Medical Services
DX: R55 Syncope and collapse (principal); R07.9 Chest pain, unspecified; R51.9 Headache, unspecified; R68.84 Jaw pain; M79.671 Pain in right foot; Z11.52 Encounter for screening for COVID-19; I10 Essential (primary) hypertension; D50.9 Iron deficiency anemia, unspecified; Z86.711 Personal history of pulmonary embolism; Z86.718 Personal history of other venous thrombosis and embolism; Z79.01 Long term (current) use of anticoagulants; Z79.899 Other long term (current) drug therapy
CPT/HCPCS: 36415; 70450; 70486; 71046; 73610; 73630; 80053; 80307; 81001; 82550; 83735; 84484; 85025; 85610; 87086; 87502; 87635; 93005; 96360; 96361; 99285

== ENCOUNTER 2025-03-24 14:26 | Emergency (ER) | payer MEDICAID, SELFPAY ==
--- OUTSIDE RECORDS SUMMARY | 2025-01-27 05:00 | XMS_ITS ---
Author Organization [facility], [facility] Address [address] [place] [id number] Care Team Providers Care Application Technician Name Role Phone ThuElmah Primary Care Provider Unavailab Alexandru Montoya Unavailable [phone] Migration, Provider Unavailable Unavailable REASON FOR VISIT EMR-Lasha Encounters [facility]counter [facility] Date [facility] [address] [address] [facility] Provider Migration Plan Of Treatment No Information Progress Notes * Savanah NINOB:[birth year] (44 yo F)Acc No.[id number]:01/27/2025 Patient: Neftali WILSONiola :1980 A ge:44 Y S ex:Female Address:[address] [place] [address], [id number] Subjective: * Chief Complaints: * E MR-Lasha * Medical History: * Surgical History: * Hospitalization/Major Diagno stic Procedure: * Medications: Objective: * Vitals: * Physical Examination: Assessment: Plan: * Treatment: * Procedure Codes: * * Date:
--- OUTSIDE RECORDS SUMMARY | 2025-01-28 05:00 | XMS_ITS ---
Author Organization [facility], [facility] Address [address] [place] [id number] Care Team Providers Care Track Walker Name Role Phone ThuElmah Primary Care Provider Unavailab Alexandru Montoya Unavailable [phone] Migration, Provider Unavailable Unavailable REASON FOR VISIT EMR-Lasha Encounters En[facility] Date [facility] [address] [address] 01/28/[facility] Provider Migration Plan Of Treatment No Information Progress Notes * Savanah NINOB:[birth year] (44 yo F)Acc No.[id number]:01/28/2025 Patient: Neftali WILSONiola :1980 A ge:44 Y S ex:Female Address:[address] [place] [address], [id number] Subjective: * Chief Complaints: * E MR-Lasha * Medical History: * Surgical History: * Hospitalization/Major Diagno stic Procedure: * Medications: Objective: * Vitals: * Physical Examination: Assessment: Plan: * Treatment: * Procedure Codes: * * Date:
--- OUTSIDE RECORDS SUMMARY | 2025-03-19 20:35 | XMS_ITS | Encounter Summary ---
Author Organization [facility] Address [address] [place] [address] Care Team Providers Care Handle Finisher Name Role Phone Tawanda German MD Primary Care Provider [phone] Reason for Visit * Reason Comments Diarrhea Encounter Details Date Type Department Care Team (Late st Contact Info) Description 03/19/2025 8:35 PM EDT - 03/19/2025 10:36 PM EDT Emergency [facility] Emergency [address] [place] [phone] Discharge Disposition: Left Against Medical Advice Social History Tobacco Use Types Packs/Day Years Used Date Smoking Tobacco: Never Smokeless Tobacco: Never Alcohol Use Standard Drinks/Week Comments No 0 (1 standard drink = 0.6 oz pur e alcohol) Interpersonal Safety Answer Date Record ed Physical Abuse Unrecognized value 10/29/2024 Verbal Abuse Unrecognized value 10/29/2024 Comments No Sex and Gender Information Value Date Recorded Sex Assigned at Female 09/28/2024 9:12 PM EDT Legal Sex Female 12:27 AM EST Gender Identity Female 09/28/2024 9:12 PM EDT Sexual Orientation Straight 09/28/2024 9: 12 PM EDT documented as of this encounter Last Filed Vital Signs Vital Sign Reading Time Taken Comments Blood Pressure 133/99 03/19/2025 8:48 PM EDT Pulse 67 03/19/2025 8:48 PM EDT Temperature 37 C (98.6 F) 03/19/2025 8:48 PM EDT Respiratory Rate 16 03/19/2025 8:48 PM EDT Oxygen Saturation 100% 03/19/2025 8:48 PM EDT Inhaled Oxygen Concentration - - Weight 115 kg (253 lb) 03/19/2025 8:48 PM EDT Height 165.1 cm (5' 5 ) 03/19/2025 8:48 PM EDT Body Mass Index 42.1 03/19/2025 8:48 PM EDT documented in this encounter Functional Status * Are you deaf or do you have serious difficulty hearing? Answer Date of Assessment Author No 10/29/2024 11:44 AM Torito Villavicencio RN * Are you blind or do you have serious difficulty seeing, even when wearing glasses? Answer Date of Assessment Author No 10/29/2024 11:44 AM Torito Villavicencio RN * Do you have serious difficulty walking or climbing stairs? Answer Date of Assessment Author No 10/29/2024 11:44 AM Torito Villavicencio RN * Do you have serious difficulty dressing or bathing? Answer Date of Assessment Author No 10/29/2024 11:44 AM Torito Villavicencio RN * Because of a physical, mental, or emotional condition, do you have serious difficulty doing errandsalone such as visiting the doctor? Answer Date of Assessment Author No 10/29/2024 11:44 AM Torito Villavicencio RN * Calculated C-SSRS Risk Score (Lifetime/Recent) Answer Date of Assessment Author No Risk Indicated 03/19/2025 8:47 PM Lawanda Johnson RN * [place] Suicide Severity Rating Scale (Screener/Recent Self-Report) Question Answer Date of Assessment Author 1. Wish to be (Past 1 Month) No 025 8:47 PM Lawanda Johnson, COURTNEY 2. Non-Specific Active Suici venice Thoughts (Past 1 Month) No 03/19/2025 8:47 PM Lawanda Johnson RN 6. Suicidal Behavior (Lifetime) No 8:47 PM Lawanda Johnson, COURTNEY documented as of this encounter Mental Status * Because of a physical, mental, or emotional condition, do you have serious difficulty concentrating, remembering, or making decisions? (5 years old or older) Answer Entry Date Author No 10/29/2024 11:44 AM Torito Villavicencio RN documented in this encounter Medications at Time of Discharge apixaban (ELIQUIS) 5 mg tablet Take 1 tablet (5 mg total) by mouth 2 (two) times a day. 180 tablet 1 01/16/2025 busPIRone (BUSPAR) 7.5 mg tablet Take 1 tablet (7.5 mg total) by mouth 2 (two) times a day. 10/24/2024 cholecalciferol (VITAMIN D-3) 50 mcg (2,000 unit) tablet Take 1 tablet (2,000 Units total) by mouth daily. 06/19/2022 EPINEPHrine (AUVI-Q) 0.15 mg/0.15 mL inj auto-injector injection Inject 0.15 mL (0.15 mg total) into the thigh 1 (one) time if needed. hydrocortisone 2.5 % cream APPLY TOPICALLY 2 (TWO) TIMES A DAY IF NEEDED FOR IRRITATION OR RASH. 30 g 2 01/16/2025 6 melatonin 2.5 mg tablet,chewable Chew 5 mg. multivitamin with minerals tabletIndications:I ntestinal malabsorption following gastrectomy Take 1 tablet by mouth 1 (one) time each day. 30 tablet 11 06/23/2024 6 Nyamyc 100,000 unit/gram powder APPLY TOPICALLY ONCE DAILY 15 g 2 02/14/2025 nystatin (MYCOSTATIN) cream OLANZapine (ZyPREXA) 20 mg tablet Take 20 mg by mouth every night at bedtime. pantoprazole (PROTONIX) 40 mg EC tablet TAKE 1 TABLET BY MOUTH EVERY MORNING BEFORE BREAKFAST *SWALLOW WHOLE, DO NOT CRUSH OR CHEW* 28 tablet 3 02/14/2025 senna-docusate (PERICOLACE) 8.6-50 mg per tablet Take 1 tablet by mouth 1 (one) time each day. 30 each 11 03/08/2025 6 tirzepatide, weight loss, (Zepbound) 15 mg/0.5 mL injection Inject 0.5 mL (15 mg total) under the skin every 7 (seven) days. 2 mL 03/07/2025 5 topiramate (TOPAMAX) 200 mg tablet Take 1 tablet (200 mg total) by mouth 2 (two) times a day. 180 each 1 12/13/2024 5 documented as of this encounter Discharge Disposition Disposition Code Departure Means Destination Left Against Medical Advice documented in this encounter Progress Notes * Lawanda Farah RN - 03/19/2025 8:58 PM EDT Allergy band and fall risk band applied to the pt's wrist. Pt instructed not get up out of the wheel chair without assist, instructed to ask the ER staff for assist with any needs before getting up due to pt c/o weakness in her legs and a hx of falls. * Samantha Pruett RN - 03/19/2025 8:41 PM EDT Pt arrives from home via EMS with reports diarrhea since this afternoon, states it's bright red. Pt also reporting abd pain for EMS. 130/90 71 15 75 bgl 98% RA documented in this encounter Plan of Treatment Upcoming Encounters Date Type Department Care Team (Late st Contact Info) Description 03/29/2025 1:40 PM EDT Office Visit Gastroenterology - [place] [address] [facility] [address] [facility] [address] [place] [address] Santy Underwood MD [address] [place] [phone] 05/11/2025 11:30 AM EST Office Visit Internal Medicine - [facility] [address] [place] [address] Tawanda German MD [address] [place] [address] 05/22/2025 1:00 PM EST Office Visit Bariatric Surgery - [place] [facility] [address] [place] [phone] Aviva Benavides MD [address] [place] [phone] 05/29/2025 1:30 PM EST Appointment [facility] Endoscopy [address] [place] [phone] Santy Underwood MD [address] [place] [phone] 05/30/2025 1:10 PM EST Office Visit [facility] [address] [place] [phone] Grazyna Hay NP [address] [place] [address] 09/05/2025 11:00 AM EDT Office Visit [facility] - [facility] [address] [place] [phone] Tawanda German MD [address] [place] [address] documented as of this encounter Procedures Procedure Name Priority Date/Time Associated Diagnosis Comments POC , URINE DIAGNOSTIC STAT 03/19/2025 9:46 PM EDT URINALYSIS WITH REFLEX MICROSCOPIC AND CULTURE STAT 03/19/2025 9:45 PM EDT VILLAVICENCIO URINE CULTURE TUBE STAT 03/19/2025 9:45 PM EDT URINALYSIS WITH REFLEX MICROSCOPIC AND CULTURE STAT 03/19/2025 9:45 PM EDT documented in this encounter Results * POC , urine manually resulted (03/19/2025 9:46 PM EDT) HCG, Ur POC Negative Negative POC hCG Int QC Pass? Yes Yes Urine Urine specimen obtained by clean catch procedure / Unknown 03/19/2025 9:46 PM EDT Sasha Kat Wanzer PA POINT OF CARE TEST ENTER /EDIT ORDERABLES Final Result * Villavicencio urine culture tube (03/19/2025 9:45 PM EDT) [facility] Extra Tube Hold for add-ons. 03/20/2025 12:01 AM EDT [facility] Comment:Auto resulted. Urine Urine specimen obtained by clean catch procedure / Unknown Non-blood Collection / Unknown 03/19/2025 9:45 PM EDT 03/19/2025 10:04 PM EDT Sasha KAUFMAN LAB URINE ORDERABLES Fin al Result [facility] [address] [place] [address], [place] [phone] * Urinalysis with reflex microscopic and culture (03/19/2025 9:45 PM EDT) [facility] Specific [place] Urine 1.008 1.003 - 1.030 LAB URINALYSIS - AUTOMATED METHOD 03/19/2025 10:12 PM [facility] pH, Urine 6.0 5.0 - 8.0 pH LAB URINALYSIS - AUTOMATED METHOD 03/19/2025 10:12 PM [facility] Leukocytes, Urine Negative Negative LAB URINALYSIS - AUTOMATED METHOD 03/19/2025 10:12 PM [facility] Nitrite, Urine Negative Negative LAB URINALYSIS - AUTOMATED METHOD 03/19/2025 10:12 PM [facility] Protein, Urine Negative <=Trace mg/dL LAB URINALYSIS - AUTOMATED METHOD 03/19/2025 10:12 PM [facility] Glucose, Urine Negative Negative mg/dL LAB URINALYSIS - AUTOMATED METHOD 03/19/2025 10:12 PM [facility] Ketones, Urine Negative Negative mg/dL LAB URINALYSIS - AUTOMATED METHOD 03/19/2025 10:12 PM [facility] Urobilinogen, Urine 0.2 0.2 - 1.0 mg/dL LAB URINALYSIS - AUTOMATED METHOD 03/19/2025 10:12 PM EDT [facility] Bilirubin, Urine Negative Negative LAB URINALYSIS - AUTOMATED METHOD 03/19/2025 10:12 PM EDT [facility] Blood, Urine Negative Negative LAB URINALYSIS - AUTOMATED METHOD 03/19/2025 10:12 PM EDT [facility] Urine Urine specimen obtained by clean catch procedure / Unknown Non-blood Collection / Unknown 03/19/2025 9:45 PM EDT 03/19/2025 10:04 PM EDT us Sasha KAUFMAN LAB URINE ORDERABLES Fin al Result [facility] [address] [place] [address], documented in this encounter Visit Diagnoses Not on filedocumented in this encounter Additional Health Concerns Assessment Noted Time PHQ-9 Depression Total Score: 0 03/08/20 3:00 PM EDT documented as of this encounter Care Teams Handle Finisher Relationship Specialty Start Date End Date Tawanda German MD [address] [place] [address] PCP - General Internal Medicine 10/20/24 documented as of this encounter
--- NOTE | ~2025-03-24 | XR_ITS ---
CLINICAL HISTORY: short of breath 2 view chest x-ray Comparison: CR/SR - XR CHEST 2 VIEWS - 05/01/23 14:56 EST Findings: The lungs are clear. Heart size is normal. No acute fracture. IMPRESSION: 1. No acute findings. This document has been electronically signed by: Sonam Murray MD on 03/24/2025 19:33:11
[2025-03-24 14:35] VITALS: BP 118/68; BP 140/110; PULSE 74; PULSE 80; RESP 18; TEMP 36.4; O2SAT 95; O2SAT 99; BMI 40.4
--- NOTE | 2025-03-24 14:40 | ECG_ITS ---
Test Reason : CP Blood Pressure : */* mmHG Vent. Rate : 63 BPM Atrial Rate : 63 BPM P-R Int : 150 ms QRS Dur : 84 ms QT Int : 412 ms P-R-T Axes : 60 32 13 degrees QTcB Int : 421 ms Normal sinus rhythm Nonspecific T wave abnormality Abnormal ECG When compared with ECG of 01-May-2023 14:35, No significant change was found Referred By: Generic ED Physician Electronically Signed By: ISSAC SHARP
--- OUTSIDE RECORDS SUMMARY | 2025-03-24 15:15 | XMS_ITS | Clinical Summary ---
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 Lymphocytes Relative 23.6 % LAB HEMETOLOGY [facility] Monocytes Relative 4.9 % LAB HEMETOLOGY METHOD 01/09/2025 10:40 PM EDT [facility] Eosinophils Relative 1.5 % LAB HEMETOLOGY METHOD 01/09/2025 10:40 PM EDT [facility] Basophils Relative 0.3 % LAB HEMETOLOGY METHOD 01/09/2025 10:40 PM T [facility] Immature Granulocytes Relative 0.3 % LAB HEMETOLOGY METHOD 01/09/2025 10:40 PM EDT [facility] Neutrophils Absolute 6.48 1.50 - 7.00 K/mcL LAB HEMETOLOGY METHOD 01/09/2025 10:40 PM EDT [facility] Lymphocytes Absolute 2.21 1.00 - 5.00 K/mcL LAB HEMETOLOGY METHOD 01/09/2025 10:40 PM EDT [facility] Monocytes Absolute 0.46 0.20 - 1.00 K/mcL LAB HEMETOLOGY METHOD 01/09/2025 10:40 PM EDT [facility] Eosinophils Absolute 0.14 0.00 - 0.50 K/mcL LAB HEMETOLOGY METHOD 01/09/2025 10:40 PM EDT [facility] Basophils Absolute 0.03 0.00 - 0.20 K/mcL LAB HEMETOLOGY METHOD 01/09/2025 10:40 PM EDT [facility] Immature Granulocytes Absolute 0.03 0.00 - 0.03 K/mcL LAB HEMETOLOGY METHOD 01/09/2025 10:40 PM EDT [facility] Blood Venous blood specimen / Unknown Venipuncture / Unknown 01/09/2025 10:29 PM EDT 01/09/2025 10:33 PM EDT Sasha KAUFMAN LAB BLOOD ORDERABLES Fin al Result [facility] [address] [place] [address], * Ethanol (01/09/2025 10:29 PM EDT) Ethanol Level <3 0 - 10 mg/dL LAB CHEMISTRY METHOD 01/09/2025 11:03 PM EDT [facility] Blood Venous blood specimen / Unknown Venipuncture / Unknown 01/09/2025 10:29 PM EDT 01/09/2025 10:33 PM EDT Sasha KAUFMAN LAB BLOOD ORDERABLES Fin al Result [facility] [address] [place] [address], * (ABNORMAL) Comprehensive metabolic panel (01/09/2025 10:29 PM EDT) Sodium 141 133 - 145 mmol/L LAB CHEMISTRY [facility] Potassium 3.8 3.5 - 5.5 mmol/L LAB CHEMISTRY METHOD 01/09/2025 11:03 PM [facility] Chloride 113(H) 96 - 110 mmol/L LAB CHEMISTRY METHOD 01/09/2025 11:03 PM [facility] CO2 22 21 - 32 mmol/L LAB CHEMISTRY METHOD 01/09/2025 11:03 PM [facility] Anion Gap 6 3 - 11 LAB CHEMISTRY METHOD 01/09/2025 11:03 PM [facility] Glucose 76 70 - 100 mg/dL LAB CHEMISTRY METHOD 01/09/2025 11:03 PM [facility] BUN 7 5 - 25 mg/dL LAB CHEMISTRY METHOD 01/09/2025 11:03 PM [facility] Creatinine 1.14(H) 0.50 - 1.10 mg/dL LAB CHEMISTRY METHOD 01/09/2025 11:03 PM [facility] eGFR 60 >=60 mL/min/1. 73m2 LAB CHEMISTRY METHOD 01/09/2025 11:03 PM [facility] Comment:Calculation based on the Chronic Kidney Disease Epidemiology Collaboration (CKD-EPI) equation refit without adjustment for race. BUN/Creatinine Ratio 6.1 LAB CHEMISTRY METHOD 01/09/2025 11:03 PM [facility] Calcium 8.7 8.5 - 10.5 mg/dL LAB CHEMISTRY METHOD 01/09/2025 11:03 PM EDT [facility] AST (SGOT) 19 10 - 42 unit/L LAB CHEMISTRY METHOD 01/09/2025 11:03 PM EDT [facility] ALT (SGPT) 21 10 - 60 unit/L LAB CHEMISTRY METHOD 01/09/2025 11:03 PM EDT [facility] Alkaline Phosphatase 96 42 - 121 unit/L LAB CHEMISTRY METHOD 01/09/2025 11:03 PM EDT [facility] Total Protein 7.1 6.0 - 8.0 g/dL LAB CHEMISTRY METHOD 01/09/2025 11:03 PM EDT [facility] Albumin 3.5 3.2 - 5.0 g/dL LAB CHEMISTRY METHOD [facility]/09[facility]25 [facility] Total Bilirubin 0.3 0.0 - 1.4 mg/dL LAB CHEMISTRY METHOD 01/09/2025 11:03 PM T [facility] Blood Venous blood specimen / Unknown Venipuncture / Unknown 01/09/2025 10:29 PM EDT 01/09/2025 10:33 PM EDT us Sasha KAUFMAN LAB BLOOD ORDERABLES Fin al Result [facility] [address] [place] [address], * ECG 12 lead (01/09/2025 9:19 PM EDT) Ventricular Rate ECG 57 BPM GEMUSE Atrial Rate 57 BPM GEMUSE P-R Interval 154 ms GEMUSE QRS Duration 90 ms GEMUSE Q-T Interval 456 ms GEMUSE QTc 443 ms GEMUSE R Mand[place] -3 degrees GEMUSE T Mand[place] 21 degrees GEMUSE ECG Interpretation Sinus bradycardia Nonspecific T wave abnormality Abnormal ECG When compared with ECG of 10-DEC-2024 01:16, No significant change was found Confirmed by MD RIVAS, AURY ([id number]) on 01/10/2025 7:04:21 AM GEMUSE 01/09/2025 9:19 PM EDT 01/10/2025 7:04 AM EDT Luis Mittal MD ECG ORDERABLES Final Result GEMUSE * Lipid panel (01/11/2024) LDL/HDL Ratio 4 Triglycerides 140 mg/dL Cholesterol 225 mg/dL HDL 53 mg/dL LDL Cholesterol 144 mg/dL Blood Venous blood specimen / Unknown Historical Provider LAB BLOOD ORDERABLES Minerva l Result * Pap Smear (06/10/2017) Pap smear no interpretation , abstracted Historical Provider HEALTH MAINTENANCE Final Result from Last 3 Months or Most Recently Relevant to Health Maintenance Additional Health Concerns Active Problems Noted Date Diagnosed Date Autogenerated Problem 03/23/2025 Insurance MEDICARE [place]ICA[place] - [place] Advance Directives Documents on File Type Date Recorded Patient Pilot Supervisor Expl anation Health Care Decision (hx) 11/19/2016 AD LION DIRECTIVE Health Care Decision (hx) 11/19/2016 AD LION DIRECTIVE Health Care Decision (hx) 11/19/2016 AD LION DIRECTIVE Health Care Decision (hx) 11/19/2016 AD LION DIRECTIVE Health Care Decision (hx) 11/19/2016 AD LION DIRECTIVE Health Care Decision (hx) 11/19/2016 AD LION DIRECTIVE Health Care Decision (hx) 11/19/2016 AD LION DIRECTIVE Health Care Decision (hx) 11/19/2016 AD LION DIRECTIVE Health Care Decision (hx) 11/19/2016 AD LION DIRECTIVE Health Care Decision (hx) 11/19/2016 AD LION DIRECTIVE Health Care Decision (hx) 11/19/2016 AD LION DIRECTIVE Health Care Decision (hx) 11/19/2016 AD LION DIRECTIVE Health Care Decision (hx) 11/19/2016 AD LION DIRECTIVE Health Care Decision (hx) 11/19/2016 AD LION DIRECTIVE Health Care Decision (hx) 11/19/2016 AD LION DIRECTIVE Health Care Decision (hx) 11/19/2016 AD LION DIRECTIVE Health Care Decision (hx) 11/19/2016 AD LION DIRECTIVE Health Care Decision (hx) 11/19/2016 AD LION DIRECTIVE Health Care Decision (hx) 11/19/2016 AD LION DIRECTIVE Health Care Decision (hx) 11/19/2016 AD LION DIRECTIVE Health Care Decision (hx) 11/19/2016 AD LION DIRECTIVE Health Care Decision (hx) 11/19/2016 AD LION DIRECTIVE Health Care Decision (hx) 11/19/2016 AD LION DIRECTIVE Health Care Decision (hx) 11/19/2016 AD LION DIRECTIVE Health Care Decision (hx) 11/19/2016 AD LION DIRECTIVE Health Care Decision (hx) 11/19/2016 AD LION DIRECTIVE Health Care Decision (hx) 11/19/2016 AD LION DIRECTIVE Health Care Decision (hx) 11/19/2016 AD LION DIRECTIVE Health Care Decision (hx) 11/19/2016 AD LION DIRECTIVE Health Care Decision (hx) 11/19/2016 AD LION DIRECTIVE Health Care Decision (hx) 11/19/2016 AD LION DIRECTIVE Health Care Decision (hx) 11/19/2016 AD LION DIRECTIVE Health Care Decision (hx) 11/19/2016 AD LION DIRECTIVE Health Care Decision (hx) 11/19/2016 AD LION DIRECTIVE Health Care Decision (hx) 11/19/2016 AD LION DIRECTIVE Health Care Decision (hx) 11/19/2016 AD LION DIRECTIVE Health Care Decision (hx) 11/19/2016 AD LION DIRECTIVE Health Care Decision (hx) 11/19/2016 AD LION DIRECTIVE Health Care Decision (hx) 11/19/2016 AD LION DIRECTIVE Health Care Decision (hx) 11/19/2016 AD LION DIRECTIVE Health Care Decision (hx) 11/19/2016 AD LION DIRECTIVE Health Care Decision (hx) 11/19/2016 AD LION DIRECTIVE Health Care Decision (hx) 11/19/2016 AD LION DIRECTIVE Health Care Decision (hx) 11/19/2016 AD LION DIRECTIVE Health Care Decision (hx) 11/19/2016 AD LION DIRECTIVE Health Care Decision (hx) 11/19/2016 AD LION DIRECTIVE Health Care Decision (hx) 11/19/2016 AD LION DIRECTIVE Health Care Decision (hx) 11/19/2016 AD LION DIRECTIVE Health Care Decision (hx) 11/19/2016 AD LION DIRECTIVE Health Care Decision (hx) 11/19/2016 AD LION DIRECTIVE Health Care Decision (hx) 11/19/2016 AD LION DIRECTIVE * Full Code - Confirmed (Latest Code Status on File) Date Activated Date Inactivated Comments 11/02/2024 11:32 PM 11/03/2024 7:08 AM This code s tatus was ascertained in the following way: Code status discussion: discussion with patient To update the patient's code status, place a code status order. Do not modify or discontinue any currently active code status orders. * Full Code - Default Date Activated Date Inactivated Comments 10/29/2024 6:28 AM 10/30/2024 2:36 PM This is orde r is used when code status has not been discussed with the patient, or code status is otherwise unknown/unconfirmed To update the patient's code status, place a code status order. Do not modify or discontinue any currently active code status orders. * Full Code - Confirmed Date Activated Date Inactivated Comments 10/21/2024 10:36 PM 10/22/2024 1:49 AM This code sta tus was ascertained in the following way: Code status discussion: discussion with patient To update the patient's code status, place a code status order. Do not modify or discontinue any currently active code status orders. Care Teams Project Inspector Relationship Specialty Start Date End Date Tawanda German MD [address] [place] [address] PCP - General Internal Medicine 10/20/24
--- OUTSIDE RECORDS SUMMARY | 2025-03-24 15:15 | XMS_ITS | Patient Health Record ---
Author Organization [facility] Address [address] [place] [address] Care Team Providers Care New Home Sales Consultant Name Role Phone Vandana Andino Primary Care Provider Unavailab Alexandru Montoya Unavailable [phone] Migration, Provider Unavailable Unavailable Reason For Referral No Information Problems Problem Type SNOMED Code ICD Code Onset Dates Problem Status W/U Status Risk Notes Problem Anxiety (63134016) Anxiety (F41.9) Active confirmed Problem Migraine (35326166) Migraine (G43.909) Active confirmed Problem Abnormal gait (60525519) Gait instability (R26.81) Active confirmed Problem Posttraumatic stress disorder (12629320) PTSD (post-traumatic stress disorder) (F43.10) Active confirmed Problem Obstructive sleep apnea syndrome (77393456) DINORAH (obstructive sleep apnea) (G47.33) Active confirmed Problem Deep venous thrombosis (424154625) DVT (deep venous thrombosis) (I82.409) Active confirmed Problem Hypertension (15861012) HTN (hypertension) (I10) Active confirmed Problem Bipolar 1 disorder (460094744) Bipolar 1 disorder (F31.9) Active confirmed Problem 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
--- OUTSIDE RECORDS SUMMARY | 2025-03-24 15:15 | XMS_ITS | Encounter Summary ---
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 History of pulmonary embolism Kimberly Timmons DO [address] [place] [address] Phone: tel: fax: Dorothea Butterfield MD [address] [facility] [address] [place] [address] Phone: tel:[phone] fax: Referral ID Status Reason Start Date Expiration Date V isits Requested Visits Authorized [id number] Closed Specialty Services Required 03/20/2025 03/20/2026 1 1 Encounter Details Date Type Department Care Team (Late st Contact Info) Description 03/19/2025 Telephone Obstetrics and Gynecology - [address] [phone] Nancy Burton CNM [address] [place] [address] Social History Tobacco Use Types Packs/Day Years [...] PM EDT documented as of this encounter Functional Status * Are you [...] 03/19/2025 8:47 PM Lawanda Johnson RN * Levy Suicide Severity Rating Scale (Screener/Recent Self-Report) Question Answer Date of Assessment Author 1. Wish to be (Past 1 Month) No 025 8:47 PM Lawanda Johnson, RN 2. Non-Specific Active Suici venice Thoughts (Past 1 Month) No 03/19/2025 8:47 PM Lawanda Johnson , RN 6. Suicidal Behavior (Lifetime) No 8:47 PM EDT Lawanda Farah, RN documented as of this encounter Mental Status * Because of a physical, mental, or emotional condition, do you have serious difficulty concentrating, remembering, or making decisions? (5 years old or older) Answer Entry Date Author No 10/29/2024 11:44 AM EDT Torito Bello RN documented in this encounter Progress Notes * Charlene Rios RN - 03/20/2025 10:06 AM EDT Spoke with pt and her disability case manager Jonna regarding provider message below. She asks that they call her to schedule appt as she coordinates this with her schedule. Currently there is no verbal release on file or FELTON for Jonna who schedules pt appts. They will stop in this week to fill out form. All questions at this time addressed. Numbers below given to f/u on referral if they do not hear from them within 7-10 business days. Referrals number option #1 [facility] [phone] [place] [address] * Kimberly Timmons DO - 03/20/2025 9:15 AM EDT Please apologize to Ashley for the delay. I did not receive the US report. The uterus is normal size, so surgery can be done minimally invasively. However, considering I am leaving the practice and this will require significant coordination with PCP and Heme given her medical history, I will referher to Dr. Higgins for surgical management. Referral has been placed. * Charlene Rios RN - 03/19/2025 4:22 PM EDT , pt is calling stating she never heard back from our office regarding scheduling surgery. She saw you in September and had discussed scheduling hysterectomy. She does not want to bleed anymore and she does not want any children. Wants to pursue having hysterectomy done. It looks like you were waiting on ultrasound. This was ordered under Nancy Burton CNM and never forwarded to you for review. She is asking if can still go ahead and have surgery scheduled? Please advise. PLAN: Explained to Ashley that hysterectomy does seem like an appropriate management option given she isnot able to use systemic hormonal or non-hormonal medications safely and has failed an IUD. However, prior to surgical scheduling, will need an US for surgical planning. US has been ordered. She will schedule. Ideally surgery is performed minimally-invasively. Surgery will require coordination from PCP and Heme as well. She is amenable to this plan. If US shows normal size uterus, will place surgical request for RAH, BS and cysto. If US shows an enlarged uterus such that this would require a larger incision, will need to discussthis with Ashley. She agrees * Geni Nettles - 03/19/2025 4:12 PM EDT Pt called states she wants to have her tubes tied - advised matthias does not do this procedure advised to [facility] there is 3 yr waiting list - pt also has questions about her period - please call documented in this encounter Plan of Treatment Upcoming Encounters Date Type Department Care Team (Late st Contact Info) Description 03/29/2025 1:40 PM EDT Office Visit Gastroenterology - [place] [address] [place] [address] Santy Underwood MD [address] [place] [phone] 05/11/2025 11:30 AM EST Office Visit Internal Medicine - [facility] [address] [place] [address] Tawanda German MD [address] [place] [address] 05/22/2025 1:00 PM EST Office Visit Bariatric Surgery - [place] 175 [facility] [address] [place] [address] Aviva Benavides MD [address] [place] [address] 05/29/2025 1:30 PM EST Appointment [facility] [address] [place] [phone] Santy Underwood MD [address] [place] [phone] 05/30/2025 1:10 PM EST Office Visit [facility] [address] [facility] [address] [place] [address] Grazyna Hay NP [address] [place] [address] 09/05/2025 11:00 AM EDT Office Visit Internal Medicine - [facility] [address] [place] [address] Tawanda German MD [address] [place] [address] Scheduled Referrals Name Type Priority Associated Diagnoses Orde r Schedule Ambulatory referral to Gynecologic Oncology Outpatient Referral Routine Menorrhagia with regular cycle Iron deficiency anemia secondary to blood loss (chronic) On anticoagulant therapy History of pulmonary embolism 1 Occurrences starting 03/20/2025 until 03/20/2026 documented as of this encounter Visit Diagnoses Diagnosis Menorrhagia with regular cycle- Primary 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
--- OUTSIDE RECORDS SUMMARY | 2025-03-24 15:16 | XMS_ITS | Patient Health Record ---
Author Organization [facility] Address [address] [place], [place] [id number] Care Team Providers Care Retina Subspecialist Name Role Phone Camryn Merchant Primary Care Provider Benton Guardado Unavailable Allergies Allergen (clinical drug ingredient) Drug/Non Drug Allergy documented on EMR Reaction Allergy Type Onset Date Status lorazepam Ativan Unknown Drug Allergy Active codeine Codeine Sulfate Unknown Drug Allergy A ctive Tetanus Toxoid Adsorbed Unknown Drug Allergy Active Reason For Referral No Information Medications Medication SIG (Take, Route, Frequency, Duration) Notes Start Date End Date Status ZyPREXA 10 MG 1 tablet- 5mg tablet every morning Orally Once a day Active Colace 100 MG 1 capsule as needed Orally twice a day Active Cpap Mask Order as directed Ac tive Claritin 10 MG 1 tablet Orally Once a day Active Motrin PM 600 mg 1 tablet Orally Once a day Active Tylenol 325 MG 2 tablets as needed Orally every 6 hrs Active Losartan Potassium 50 MG 1 tablet Orally Once a day Active Ventolin HFA 108 (90 Base) MCG/ACT 2 puffs as needed Inhalation every 4 hrs 07/09/2016 Active Qvar 80 MCG/ACT 1 puff Inhalation Tw ice a day; Duration: 30 days 07/09/2016 Active Iron 325 (65 Fe) MG 1 tablet Orally Once a day Active Apixaban 5 MG 1 tab Orally BID; Duration: 30 days Active PriLOSEC 20 MG 2 capsules Orally On ce a day Active Vitamin D (Cholecalciferol) 1000 UNIT 1 capsule Orally Once a day Active Problems Problem Type SNOMED Code ICD Code Onset Dates Problem Status W/U Status Risk Notes Problem Shortness of breath (916785481) Shortness of breath (R06.02) Active confirmed Problem Hemorrhage of rectum and anus (455372773) Hemorrhage of anus and rectum (K62.5) Active confirmed Problem Cough (10069766) Cough (R05) Active confirmed Problem Obstructive sleep apnea (36579233) Obstructive sleep apnea (G47.33) Active confirmed Problem Morbid obesity (292862154) Morbid obesity (E66.01) Active confirmed Problem Uncomplicated mild persistent asthma (757214155) Mild persistent asthma without complication (J45.30) Active confirmed Problem Acute pulmonary embolism (525497537) Acute pulmonary embolism (I26.99) Active confirmed Plan Of Treatment Future Test Test Name Order Date CT CHEST +C 07/09/2016 Insurance Providers Payer Name Payer Address Payer Phone Subscriber Number Group Number Insured Name Patient Relationship to Insured Coverage Start Date Coverage End Date Medicare [address] [place] [phone] [id number] Ashley Nino Self - patient is the insured 3 Medicaid [address] [place] [phone] [id number] Ashley Nino Self - patient is the insured Medical (General) History Medical History History ICD Code DVT PE DINORAH Anemia Bipolar disorder PTSD Hypertension
--- OUTSIDE RECORDS SUMMARY | 2025-03-24 15:16 | XMS_ITS | Encounter Summary ---
Author Organization [facility] Address [address] [place] [address] Care Team Providers Care Assistant Commissioner Name Role Phone Tawanda German MD Primary Care Provider [phone] Reason for Visit * Reason Onset Date Comments Med Refill 03/05/2025 Zepbound w/titra tion Encounter Details Date Type Department Care Team (Late st Contact Info) Description 03/05/2025 Telephone Bariatric Surgery - [facility] [address] [facility] [address] [place] [address] Aviva Benavides MD [address] [place] [phone] Social History Tobacco Use Types Packs/Day Years [...] of Assessment Author No 10/29/2024 11:44 AM EDT Torito Bello RN * Are you blind or do [...] 10/29/2024 11:44 AM Torito Villavicencio RN documented as of this encounter Mental Status * Because of a physical, mental, or emotional condition, do you have serious difficulty concentrating, remembering, or making decisions? (5 years old or older) Answer Entry Date Author No 10/29/2024 11:44 AM Torito Villavicencio RN documented in this encounter Progress Notes * Nikki Salazar - 03/05/2025 9:39 AM EDT Patient did well on Zepbound 15 mgs and would like a refill. If appropriate, please send script for Zepbound 15 mgs to their pharmacy. The patient does have a follow up in 05/22/2025 documented in this encounter Plan of Treatment Upcoming Encounters Date Type Department Care Team (Late st Contact Info) Description 03/29/2025 1:40 PM EDT Office Visit Gastroenterology - [facility] [address] [facility] [address] [place] [address] Santy Underwood MD [address] [place] [phone] 05/11/2025 11:30 AM EST Office Visit Internal Medicine - [facility] [address] [place] [address] Tawanda German MD [address] [place] [address] 05/22/2025 1:00 PM EST Office Visit Bariatric Surgery - [facility] [address] [facility] [address] [place] [phone] Aviva Benavides MD [address] [place] [phone] 05/29/2025 1:30 PM EST Appointment [facility] [address] [place] [phone] Santy Underwood MD [address] [place] [phone] 05/30/2025 1:10 PM EST Office Visit [facility] [address] [facility] [address] [place] [phone] Grazyna Hay, GEORGE [address] [facility] [address] [place] [address] 09/05/2025 11:00 AM EDT Office Visit Internal Medicine - [facility] [address] [place] [phone] Tawanda German MD [address] [place] [address] documented as of this encounter Visit Diagnoses Not on filedocumented in this encounter Care Teams Assistant Commissioner Relationship Specialty Start Date End Date Tawanda German MD [address] [place] [phone] PCP - General Internal Medicine 10/20/24 documented as of this encounter
--- OUTSIDE RECORDS SUMMARY | 2025-03-24 15:16 | XMS_ITS ---
Author Name [facility] Organization Unknown Allergies Allergen Reaction Severity Comment Documented Date Source Statu s ARIPIPRAZOLE Low heart rate per patient 03/10/2023 [facility] active TRAZODONE OTHER Slow heart beats 12/05/2021 [facility] active TETANUS TOXOID 10/07/2021 [facility] act ashlie KETAMINE NAUSEA AND VOMITING 08/23/2018 [facility] active CODEINE 03/05/2017 [facility] active LORAZEPAM 12/18/2016 [facility] active Problems Problem Status Onset Date Problem Type Date of Resoluti on Source Anal fissure active 2017-03-24 ProblemAct [facility] Class 3 severe obesity with body mass index (BMI) of 40.0 to 44.9 in adult active 2024-03-28 ProblemAct [facility] Left arm pain active 2022-03-24 ProblemAct [facility] Pulmonary embolism active 2024-03-08 ProblemAct [facility] Orthostatic hypotension active 2023-04-01 ProblemAct [facility] DVT of deep femoral vein active 2024-04-01 ProblemAct [facility] Coffee ground emesis active 2022-07-24 ProblemAct [facility] Anxiety and depression active 2017-02-08 ProblemAct [facility] Hidradenitis active 2024-03-28 ProblemAct [facility] GERD (gastroesophageal reflux disease) active 2024-03-08 ProblemAct [facility] Hypertension active 2024-03-08 ProblemAct [facility] Migraine headache active 2022-03-24 ProblemAct [facility] Disease due to severe acute respiratory syndrome coronavirus 2 (SARS-CoV-2) active 2022-06-21 ProblemAct [facility] Impaired glucose tolerance active 2024-03-28 ProblemAct [facility] Palpitation active 2022-03-24 ProblemAct [facility] Upper GI bleed active 2022-03-24 ProblemAct [facility] Bipolar disorder active 2024-03-08 ProblemAct C [facility] Syncope active 2022-03-24 ProblemAct [facility] 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 2021-10-12 ProblemAct [facility] DVT of deep femoral vein, bilateral active 2024-03-08 ProblemAct [facility] DINORAH on CPAP active 2024-04-01 ProblemAct [facility] Mild persistent asthma without complication active 2024-03-08 ProblemAct [facility] Vitamin D insufficiency active 2016-12-21 ProblemAct [facility] 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 active 2024-03-08 ProblemAct [facility] Borderline personality disorder active 2024-03-08 ProblemAct [facility] PTSD (post-traumatic stress disorder) active 2024-03-08 ProblemAct [facility] Mild intellectual disability active 2017-03-05 ProblemAct [facility] Immunizations Vaccine Date Source Lot Number Status Hepatitis B (Xhykcms-L-Xpgze , Recombivax HB-Adult) 19yo and older 12/08/2022 [facility] [id number] complet ed MMR, measles mumps and rubel la Live (Priorix; M-M-R II) 12mo and older 07/21/2022 [facility] UNK completed Hepatitis B (Gakchxq-E-Erzke , Recombivax HB-Adult) 19yo and older 07/13/2022 [facility] [id number] complet ed Hepatitis B (Mbxpvsr-L-Hocak , Recombivax HB-Adult) 19yo and older 06/08/2022 [facility] [id number] complet ed Varicella live (Varivax) 12mo and older 05/19/2022 [facility] [id number] completed Influenza trivalent, with pr eservative (Fluzone; Afluria) 6mo and older 05/05/2022 [facility] [id number] completed Tdap Tetanus diptheria acell ular pertussis (Boostrix; Adacel) 7yo and older 04/21/2022 [facility] [id number] completed MMR, measles mumps and rubel la Live (Priorix; M-M-R II) 12mo and older 04/20/2022 [facility] [id number] completed Influenza trivalent, with pr eservative (Fluzone; Afluria) 6mo and older 04/17/2022 [facility] [id number] completed Influenza trivalent, with pr eservative (Fluzone; Afluria) 6mo and older 08/14/2021 [facility] [id number] completed Pneumococcal polysaccharide 23 valent (Pneumovax 23) 2yo and older 07/11/2021 [facility] [id number] com pleted Pfizer SARS-CoV-2 COVID-19, mRNA, LNP-S, preservative free 08/07/2020 [facility]JUL[facility] UNK completed Moderna SARS-CoV-2 COVID-19, mRNA, LNP-S, preservative free 07/29/2020 [facility] UNK completed Moderna SARS-CoV-2 COVID-19, mRNA, LNP-S, preservative free 07/18/2020 [facility]SFRJUL[facility] UNK completed Influenza trivalent, with pr eservative (Fluzone; Afluria) 6mo and older 07/04/2019 [facility] [id number] completed Pneumococcal polysaccharide 23 valent (Pneumovax 23) 2yo and older 12/19/2018 [facility] [id number] com pleted Influenza Quadravalent, MDCK , 0.5ml, preservative free (Flucelvax) 6mo and older 05/19/2018 [facility] [id number] completed
[2025-03-24 16:40] LABS: COVID-19 Test Negative (Negative); IDNOW Serial# 6674DD1D
[2025-03-24 16:47] LABS: IDNOW Serial# 08D9AD1C; Influenza B2 Negative (Negative)
--- NOTE | 2025-03-24 16:51 | PC.NURSE ---
This RN attempted blood work, unsuccessful with butterfly to left wrist. Spouse at bedside is hyperverbal, noted to be recording this RN and instructed he is unable to record in this setting. Family member initially agitated but able to be redirected and deescalated and agreeable to let this RN proceed in attempt. This RN only attempted once. Pt pending MD arroyo. Sleepy but does awake to verbal stimuli.
[2025-03-24 17:08] VITALS: BP 106/59; PULSE 60; RESP 18; O2SAT 100
--- NOTE | 2025-03-24 18:18 | ED_ITS ---
HPI - Chest Pain General Chief Complaint: Back Pain/Injury Stated Complaint: LETHARGY @ LIBRARY PER EMS Time Seen by Provider: 03/24/25 17:47 Source: patient, EMS and other (partner) Mode of arrival: EMS Limitations: no limitations History of Present Illness ED Provider: BRINA BERMUDEZ PA-C HPI narrative: 44 year old female with pmhx significant for PTSD, bipolar 1 disorder, mild intellectual disability presents to the ED today via EMS for evaluation of near syncopal episode occurring [employer]TRY WR[employer] in ED today. Patient states she was standing outside at the bus stop when she began to feel faint. Her partner assisted her into the library where she was able to sit down. Reports giving patient water to drink. Reports central chest pain at that time, felt generally weak. Denies abdominal pain, N/V, shortness of breath, LE pain/swelling. Triage note reports patient concerns of back pain. On my initial interview, patient reports all over body pain, cannot localize specific area. Reports she was seen at [facility] two days for recurrent syncopal episodes since August 2024. Admitted over night and discharged home yesterday. Related Data Home Medications ?Medication ?Instructions ?Recorded ?Confirmed apixaban 5 mg tablet (Eliquis) 1 tab PO BID 05/08/21 1 07/08/20 losartan 50 mg tablet 1 tab PO DAILY 05/08/2104/21 olanzapine 20 mg tablet 1 tab PO BEDTIME 05/08/21 topiramate 200 mg tablet 200 mg PO BEDTIME 05/08/21 1 07/08/20 Previous Rx's ?Medication ?Instructions ?Recorded omeprazole 20 mg capsule,delayed 20 mg PO DAILY@0630 3 0 days #30 05/12/21 release caps prazosin 1 mg capsule 2 mg PO BEDTIME 30 days #60 caps 05/12/21 sennosides 8.6 mg tablet (Senna 8.6 mg PO BEDTIME 30 d ays #30 tabs 05/12/21 Lax) cefuroxime axetil 500 mg tablet 500 mg PO BID 7 days # 14 tabs 03/07/23 polyethylene glycol 3350 17 17 g PO DAILY #510 grams 0 03/07/23 gram/dose oral powder (Miralax) cefuroxime axetil 250 mg tablet 250 mg PO BID 7 days # 14 tabs 03/25/25 Allergies Allergy/AdvReac Type Severity Reaction Status Date / Time lorazepam (From ATIVAN) Allergy Mild HEART Verified 03/24/25 20:04 STOPPED codeine (CODEINE) Allergy Unknown SWELLING Verified 03/24/25 20:04 ziprasidone (From GEODON) Allergy Unknown HEART STOPS Verified 03/24/25 20:04 aripiprazole (From Abilify) Allergy Anaphylaxis Verified 03/24/25 20:04 trazodone Allergy Anaphylaxis Verified 03/24/25 20:04 Tetanus Vaccines and Toxoid AdvReac Mild HEART Verified 03/24/25 20:04 (TETANUS VACCINES AND TOXOID) STOPPED Review of Systems 2 Review of Systems: Yes all other systems are reviewed and are negative [facility] Past Medical History Attestation statement: The following information was validated with the patient. Source: old records reviewed and nursing notes reviewed Medical History Pulmonary embolism DVT (deep venous thrombosis) Borderline personality disorder Bipolar 1 disorder Post traumatic stress disorder (PTSD) Depression Hypertension Surgical History No pertinent past surgical history Social History Social History Household Members: None Household Members Other:: Homeless Housing: Homeless Do you presently have visiting nurse or other home services: Yes Comment: Uses a walker Patient Tobacco Use Status: Never used Tobacco service: No Sexual orientation: Straight/Heterosexual Physical Exam 2 Vital Signs: Vital Signs: Last Vital Signs Temp 98.4 F 03/25/25 01:47 Pulse 66 03/25/25 01:47 Resp 16 03/25/25 01:47 BP 130/71 03/25/25 01:47 Pulse Ox 100 03/25/25 01:47 O2 Del Method Room Air 03/25/25 01:47 BMI result Body Mass Index 36.6 Vital signs stable, afebrile General: no acute distress Skin: Warm, dry, intact. No rashes or lesions. Head: Normocephalic, atraumatic. EENT: Hearing is intact b/l. Conjunctiva clear. PERRLA. EOM intact. Moist mucous membranes.? Neck: Supple without LAD Cardiac: Chest wall symmetric. RRR Lungs: Normal respiratory effort without accessory muscle use. CTA bilaterally Abdomen: soft, non-tender, non-distended. No rebound tenderness or guarding. Positive BS x4. Back: No midline spinous or paraspinal tenderness. No step off deformity. Ext: Upper and lower extremities atraumatic, without tenderness, deformity, swelling or erythema Neuro: AOx3. Normal speech. NIH 0. CN 2-12 grossly intact. Strength 4/5 intact throughout. No saddle anesthesia. Sensation intact to light touch. NV intact distally. Ambulating with steady gait. Course Course Course Narrative: CBC without leukocytosis or left shift. Microcytic anemia, H&H 9.3/28.2. On review of [facility] medical records, her hemoglobin averages between 8 and 10, within this range. Chemistry without acute electrolyte abnormality requiring intervention. No SANDRINE. Liver function WNL. troponin undetectable. EKG showing normal sinus rhythm, rate of 68 beats per minute, QT 412, QTC 421, no acute ischemic changes or ST elevations > UA mildly infected. Will treat with Ceftin > orthostatic vitals negative. She has received a L of normal saline here > discussed workup results patient and her partner. They are anxious for discharge home. Patient states she feels improved. I feel she is stable for discharge home at this time. Patient has remained stable throughout ED visit today. Discussed worrisome signs and symptoms and when to return to the ED. All questions answered at this time. Patient is agreeable with disposition and stable for discharge. Medications Administered Discontinued Medications Generic Name Dose Route Start Last Admin Trade Name Freq PRN Reason Stop Dose Admin Sodium Chloride 1,000 mls @ 999 mls/hr 03/24/25 18:30 03/24/25 23:34 Ns IV 03/24/25 19:30 Infused .Q1H1M MARK Infusion Medical Decision Making Medical Decision Making [facility] Narrative: 44 year old female with pmhx significant for PTSD, bipolar 1 disorder, mild intellectual disability presents to the ED today via EMS for evaluation of near syncopal episode occurring [employer] ENTRY WR[employer] in ED today. Vital signs stable. Afebrile. she is generally well appearing and in NAD. exam benign. Differential diagnosis includes anemia, electrolyte abnormality, dehydration, orthostatic hypotension, arrhythmia, ACS, UTI, homelessness, pneumonia, viral syndrome Plan for labs, UA, viral swabs, IVF, ortho vitals, ekg, re-eval. Differential Diagnosis Differential Diagnoses: The differential diagnosis associated with the presentation includes as above. Admission/Observation Not indicated Lab Data MDM Lab Attestation statement: I reviewed the patient's lab results. As above 03/24/25 20:48 03/24/25 20:48 Labs: Lab Results 03/24/25 03/24/25 03/25/25 Range/Units 16:14 20:48 00:34 WBC 8.5 (4.8-10.8) X10*3/uL RBC 3.91 L (4.20-5.50) X10*6/uL Hgb 9.3 L (12.0-16.0) g/dl Hct 28.2 L D (37.0-47.0) % MCV 72.1 L (80.0-98.0) fL MCH 23.8 L (27.0-33.0) pg MCHC 33.0 (31.0-35.0) g/dl RDW 20.9 H (11.0-16.0) % Plt Count 397 (160-400) X10*3/uL MPV 10.3 (9.4-12.3) fL Immature Gran % (Auto) 0.1 (0.0-0.4) % Neut % (Auto) 59.5 (45-73) % Lymph % (Auto) 33.1 (20-40) % Tucker % (Auto) 5.2 (2-11) % Eos % (Auto) 1.9 (0-4) % Baso % (Auto) 0.2 (0-2) % Lymph # (Auto) 2.8 (1.2-4.9) X10*3/uL Tucker # (Auto) 0.4 (0.1-1.2) X10*3/uL Eos # (Auto) 0.2 (0.0-0.4) X10*3/uL Baso # (Auto) 0.0 (0.0-0.2) X10*3/uL Abs Immat Gran (auto) 0.01 (0.00-0.03) X10*3/uL Absolute Neuts (auto) 5.0 (2.0-8.3) x10*3/uL Absolute Nucleated RBC 0.000 (0.0-0.012) X10*3/uL Nucleated RBC % (auto) 0.0 (0.0-0.2) /100WBC Sodium 142 (135-145) mmol/L Potassium 3.3 (3.3-5.1) mmol/L Chloride 112 H (96-108) mmol/L Carbon Dioxide 21 L (22-29) mmol/L Anion Gap 12 (12-20) BUN 11 (9-16) mg/dL Creatinine 0.91 (0.5-1.4) mg/dL Estim Creat Clear Calc 90.4 Estimated GFR > 60 Random Glucose 87 (60-115) mg/dL Calcium 8.8 (8.4-10.2) mg/dL Total Bilirubin 0.3 (0.0-1.0) mg/dL AST 19 (5-31) U/L ALT 16 (0-31) U/L Alkaline Phosphatase 63 (39-117) U/L Total Creatine Kinase 115 (26-140) U/L Troponin I High Sens < 2.7 (<3.5-17.0) ng/L Total Protein 6.8 (6.5-8.0) g/dL Albumin 3.9 (3.5-5.0) g/dL Urine Color Dark Yellow Urine Appearance Cloudy Urine pH 5.5 (5.0-9.0) Ur Specific [place] >= 1.030 H (1.005-1.025) Urine Protein Trace (Neg-Trace) mg/dL Urine Glucose (UA) Negative (Negative) mg/dL Urine Ketones Trace (Negative) mg/dL Urine Blood Large (3+) H (Negative) Urine Nitrite Negative (Negative) Ur Leukocyte Esterase Trace H (Negative) Urine RBC >20 H (0-2) /HPF Urine WBC 0-5 (0-5) /HPF Ur Squamous Epith Cells 6-10 (0-2) /HPF Calcium Oxalate Crystal Present Urine Bacteria Trace (None Seen) Hyaline Casts 3-5 (0-2) /LPF COVID-19 (CIRILO) Negative (Negative) COVID-19 Clin Com See Note Influenza Type A (YOHAN) Negative (Negative) Influenza Type B (YOHAN) Negative (Negative) Influenza A & B Note See Note Independent Interpretation I performed an independent interpretation of an: EKG and Plain X-Ray Interpretation: EKG showing normal sinus rhythm, rate of 63 beats per minute, no QT prolongation, no acute ischemic changes or ST elevations cxr without infiltrate or consolidation Radiology Impression Discussion of test interpretation with radiology: I have reviewed the radiologist's reading. Radiologist Impression: Procedure(s): XR chest 2V Accession Number(s): [id number] cc: Physician,Unknown ; Brina Bermudez~ Reason for Exam: short of breath CLINICAL HISTORY: short of breath 2 view chest x-ray Comparison: CR/SR - XR CHEST 2 VIEWS - 05/01/23 14:56 EST Findings: The lungs are clear. Heart size is normal. No acute fracture. IMPRESSION: 1. No acute findings. This document has been electronically signed by: Sonam Murray MD on 03/24/2025 19:33:11 Independent Historian Clinical information obtained from an independent historian. History obtained from or confirmed by: EMS and Other (Partner) External Record Review External record reviewed: Inpatient record Prescription Management I considered prescription management with: Antibiotic (Ceftin) Social Determinants Patient?s care significantly limited by Social Determinants of Health including: Other Social Determinant of Health Critical Care Time Critical Care Time Critical Care Time: No Discharge Plan Discharge Clinical Impression: Weakness Patient Disposition: Home, Self-Care Instructions: Weakness (ED) Additional Instructions: Your urine is concerning for possible urinary tract infection. I am starting you on Ceftin, an antibiotic. Take this as prescribed. Your workup was otherwise reassuring. Follow up with outpatient providers. Return with any new or worsening symptoms. In the case of an emergency call 911. Prescriptions: New cefuroxime axetil 250 mg tablet 250 mg PO BID 7 Days Qty: 14 0RF No Action losartan 50 mg tablet 1 tab PO DAILY topiramate 200 mg tablet 200 mg PO BEDTIME olanzapine 20 mg tablet 1 tab PO BEDTIME Eliquis 5 mg tablet 1 tab PO BID sennosides [Senna Lax] 8.6 mg Tablet 8.6 mg PO BEDTIME 30 Days Qty: 30 0RF prazosin 1 mg Capsule 2 mg PO BEDTIME 30 Days Qty: 60 0RF Protocol: Hold for SBP< HOLD for SBP < : 90 omeprazole 20 mg Capsule,Delayed Release(Dr/Ec) 20 mg PO DAILY@0630 30 Days Qty: 30 0RF polyethylene glycol 3350 [Miralax] 17 gram/dose powder 17 g PO DAILY Qty: 510 0RF cefuroxime axetil 500 mg tablet 500 mg PO BID 7 Days Qty: 14 0RF Referrals: Physician,Unknown J [Primary Care Provider, Medical] Interventions: ED Discharge Assessment Last Done: 03/25/25 01:47 Discharge Date/Time: 03/25/25 01:49 Print Language: Comoran
--- NOTE | 2025-03-24 19:23 | PC.NURSE ---
assumed care of pt. Boyfriend at bedside asked that pt lay on back for blood pressure reading, pt was able to but states it hurts to lay on her back
--- NOTE | 2025-03-24 19:25 | PC.NURSE ---
COURTNEY Guardado attempting to get ultrasound guided IV, will proceed with IVF once line is placed.
[2025-03-24 20:03] VITALS: BMI 36.6
--- NOTE | 2025-03-24 20:27 | MHC.EDTECH ---
Went into to pts room to draw labs. Her significant other was at bedside. I asked the pt if it was ok that i take a look. She said yes. I then asked her to verify her last name and date of . Her significant other said , who me . and i said , nope this is for her. He then started mumbling things under his breathe. I said to him did you have a question. He then started giving me attitude be he said he was trying to advocate for her and shes trying to rest and im bothering her. I said well she needs labs done and shes able to communicate. He then started getting loud with me and i then ok i wont draw her labs then and i left the room. He continued to saying stuff as i was leaving the room. Charge nurse is aware of the situation
[2025-03-24 20:52] LABS: MANUAL DIFF FLAG NO
[2025-03-24 20:53] LABS: Hematocrit 28.2 % (37.0-47.0); Hemoglobin 9.3 g/dl (12.0-16.0); Imm Gran Abs Auto 0.01 X10*3/uL (0.00-0.03); Imm Gran Pct Auto 0.1 % (0.0-0.4); Lymphocytes Absolute Auto 2.8 X10*3/uL (1.2-4.9); Mean Corpuscular HGB Conc 33.0 g/dl (31.0-35.0); Mean Corpuscular Hemoglobin 23.8 pg (27.0-33.0); Mean Corpuscular Volume 72.1 fL (80.0-98.0); NRBC Abs Auto 0.000 X10*3/uL (0.0-0.012); NRBC Pct Auto 0.0 /100WBC (0.0-0.2); Platelet Count 397 X10*3/uL (160-400); Red Blood Count 3.91 X10*6/uL (4.20-5.50); White Blood Count 8.5 X10*3/uL (4.8-10.8)
[2025-03-24 21:08] LABS: Alanine Aminotransferase 16 U/L (0-31); Albumin Level 3.9 g/dL (3.5-5.0); Alkaline Phosphatase 63 U/L (39-117); Anion Gap 12 (12-20); Aspartate Amino Transferase 19 U/L (5-31); Blood Urea Nitrogen 11 mg/dL (9-16); Calcium 8.8 mg/dL (8.4-10.2); Carbon Dioxide 21 mmol/L (22-29); Chloride 112 mmol/L (96-108); Creatinine Clr Calc Pharmacy 90.4; Estimated Glomerular Filt Rate > 60; Potassium 3.3 mmol/L (3.3-5.1); Sodium 142 mmol/L (135-145); Total Protein 6.8 g/dL (6.5-8.0)
[2025-03-24 21:15] LABS: Troponin-I High Sensitivity < 2.7 ng/L (<3.5-17.0)
--- NOTE | 2025-03-24 21:55 | PC.NURSE ---
fluids continue to run per MAR, pt advised t try an keep her arm straight. Pt resting quietly, spouse at bedside.
[2025-03-25 00:12] VITALS: BP 87/47; PULSE 65
[2025-03-25 00:17] VITALS: BP 107/74; PULSE 75
[2025-03-25 00:19] VITALS: BP 103/68; PULSE 94
[2025-03-25 00:47] LABS: Appearance Urine Cloudy; Glucose Urine UA Negative (Negative); PH 5.5 (5.0-9.0); Specific Gravity - Urine >= 1.030 (1.005-1.025); UMIC TRIGGER UACC YES
[2025-03-25 01:47] VITALS: BP 130/71; PULSE 66; RESP 16; TEMP 36.9; O2SAT 100
--- OUTSIDE RECORDS SUMMARY | 2025-04-05 20:00 | XMS_ITS | Clinical Summary ---
Author Organization Unknown Care Team Providers Care Jr. Systems Administrator Name Role Phone TRA DICK, LYLE Unavailable Unavailable SHANTI RN, SAMIRA Unavailable Unavailable DANIEL RN, VIKY Unavailable Unavailable Payers Payer Name Policy Type Policy Number Effective Date Expira tion Date [place] - [place] [id number] ON DEMAND MEDICARE - [facility] BILLING - ABN [id number] Problems Condition Name Condition Details Condition Category Status Onset Date Resolution Date Last Treatment Date Treating Clinician Comments BIPOLAR DISORDER, UNSPECIFIED Active 12-06 00:00: 00 Allergies, Adverse Reactions, Alerts Allergy Name Allergy Type Status Severity Reaction(s) Onset Date Inactive Date Treating Clinician Comments ATIVAN Propensity to adverse reactions Active 12-10 12:25: 03 CODEINE Propensity to adverse reactions Active 12-10 12:24: 11 TRAZADONE Propensity to adverse reactions Active 12-10 12:24: 20 KETAMINE Propensity to adverse reactions Active 12-10 12:23: 45 TETANUS IMMUNE GLOBULIN Propensity to adverse reactions Active 12-10 12:24: 01 ARIPIPRAZOLE Propensity to adverse reactions Active 12-10 12:26: 14 Medications Ordered Medication Name Filled Medication Name Start Date Stop Date Current Medication? Ordering Clinician Indication Dosage Frequency Signature (SIG) Comments Components acetaminoph en 325 mg tablet 12-08 00:00: 00 Yes [id number] 2 tablet 3 TIMES DAILY 2 tablet 3 TIMES DAILY (route: oral) Med Classific ation: Analgesic , Anti-infl ammatory or Antipyret ic buspirone 7.5 mg tablet 12-08 00:00: 00 Yes [id number] 1 tablet 2 TIMES DAILY 1 tablet 2 TIMES DAILY (route: oral) Med Classific ation: Central Nervous System Agents Eliquis 5 mg tablet 12-08 00:00: 00 Yes [id number] 5 mg 2 TIMES DAILY 5 mg 2 TIMES DAILY (route: oral) Med Classific ation: Hematolog ical Agents epinephrine 0.3 mg/0.3 mL injection, auto-inject or 12-08 00:00: 00 Yes [id number] 0.3 mg DAILY 0.3 mg DAILY (route: injection) Med Classific ation: Cardiovas cular Therapy Agents esomeprazol e magnesium 40 mg capsule,del ayed release 12-08 00:00: 00 Yes [id number] 1 capsule 2 TIMES DAILY 1 capsule 2 TIMES DAILY (route: oral) Med Classific ation: Gastroint estinal Therapy Agents ferrous sulfate 325 mg (65 mg iron) tablet 12-08 00:00: 00 Yes [id number] 325 mg DAILY 325 mg DAILY (route: oral) Med Classific ation: Electroly te Balance-N utritiona l Products fluticasone propionate 50 mcg/actuati on blister powder for inhalation 12-08 00:00: 00 Yes [id number] 1 inhalat ion 2 TIMES DAILY 1 inhalation 2 TIMES DAILY (route: inhalation ) Med Classific ation: Respirato ry Therapy Agents hydroxyzine HCl 50 mg tablet 12-08 00:00: 00 Yes [id number] 1 tablet 2 TIMES DAILY 1 tablet 2 TIMES DAILY (route: oral) Med Classific ation: Central Nervous System Agents losartan 50 mg tablet 12-08 00:00: 00 Yes [id number] 1 tablet DAILY 1 tablet DAILY (route: oral) Med Classific ation: Cardiovas cular Therapy Agents olanzapine 20 mg tablet 12-08 00:00: 00 Yes [id number] 20 mg BEDTIME 20 mg BEDTIME (route: oral) Med Classific ation: Central Nervous System Agents pantoprazol e 40 mg tablet,irlanda yed release 12-08 00:00: 00 Yes [id number] 40 mg DAILY 40 mg DAILY (route: oral) Med Classific ation: Gastroint estinal Therapy Agents promethazin e 12.5 mg tablet 12-08 00:00: 00 Yes [id number] 1 tablet EVERY 6 HOURS 1 tablet EVERY 6 HOURS (route: oral) Med Classific ation: Respirato ry Therapy Agents sucralfate 1 gram tablet 12-08 00:00: 00 Yes [id number] 1 g 3 TIMES DAILY 1 g 3 TIMES DAILY (route: oral) Med Classific ation: Gastroint estinal Therapy Agents Wegovy 1 mg/0.5 mL subcutaneou s pen injector 12-08 00:00: 00 Yes [id number] 1 mg WEEKLY 1 mg WEEKLY (route: subcutaneo us) Med Classific ation: Weight Loss/Gain Agents zonisamide 50 mg capsule 12-08 00:00: 00 Yes [id number] 1 capsule 2 TIMES DAILY 1 capsule 2 TIMES DAILY (route: oral) Med Classific ation: Central Nervous System Agents Vital Signs Vital Name Observation Time Observation Value Commen ts Temperature 2025-02-26 13:21:00.000 97.6 [degF] Temperature 2025-02-20 15:17:00.000 98.3 [degF] Pulse 2025-02-26 13:21:00.000 88 /min Pulse 2025-02-20 15:17:00.000 82 /min Respirations 2025-02-26 13:21:00.000 18 /min Respirations 2025-02-20 15:17:00.000 18 /min Systolic Blood Pressure 2025-02-26 13:21:00.000 140 mm [Hg] Systolic Blood Pressure 2025-02-20 15:17:00.000 132 mm [Hg] Diastolic Blood Pressure 2025-02-26 13:21:00.000 80 mm [Hg] Diastolic Blood Pressure 2025-02-20 15:17:00.000 80 mm [Hg] Plan of Treatment Planned Activity Planned Date Details Comments Future Scheduled Test SKILLED NU RSE TO EVALUATE PATIENT, IDENTIFY PRIMARY AND CO-MORBID CONDITIONS CODED PER CODING GUIDELINES, AND DEVELOP PATIENT SPECIFIC PLAN OF CARE THAT INCLUDES PATIENT GOAL FOR HOME HEALTH. [code = SKILLED NURSE TO EVALUATE PATIENT, IDENTIFY PRIMARY AND CO-MORBID CONDITIONS CODED PER CODING GUIDELINES, AND DEVELOP PATIENT SPECIFIC PLAN OF CARE THAT INCLUDES PATIENT GOAL FOR HOME HEALTH.] Future Scheduled Test SKILLED NU RSE TO O/A OF PATIENTS MENTAL/BEHAVIORAL STATUS, ASSESS VITAL SIGNS (FREQUENCY OF VS), ALLOW 2 PRNS FOR MEDICATION MANAGEMENT. [code = SKILLED NURSE TO O/A OF PATIENTS MENTAL/BEHAVIORAL STATUS, ASSESS VITAL SIGNS (FREQUENCY OF VS), ALLOW 2 PRNS FOR MEDICATION MANAGEMENT.] Future Scheduled Test SKILLED NU RSE FOR O/A OF ALTERED MOOD [code = SKILLED NURSE FOR O/A OF ALTERED MOOD] Future Scheduled Test SKILLED NU RSE FOR O/A OF GENERAL HEALTH STATUS OF PAIN, CARDIAC, RESPIRATORY, GASTROINTESTINAL, GENITOURINARY, SKIN, NEUROLOGIC, ENDOCRINE SYSTEMS TO IDENTIFY CHANGES ASSOCIATED WITH EXACERBATION FOR EARLY INTERVENTION OF COMPLICATIONS (FREQUENCY) [code = SKILLED NURSE FOR O/A OF GENERAL HEALTH STATUS OF PAIN, CARDIAC, RESPIRATORY, GASTROINTESTINAL, GENITOURINARY, SKIN, NEUROLOGIC, ENDOCRINE SYSTEMS TO IDENTIFY CHANGES ASSOCIATED WITH EXACERBATION FOR EARLY INTERVENTION OF COMPLICATIONS (FREQUENCY)] Future Scheduled Test SKILLED NU RSE FOR O/A AND SKILLED TEACHING RELATED TO MANAGEMENT OF DEPRESSIVE SYMPTOMS AND/OR DEPRESSION. SN TO REPORT SIGNIFICANT CHANGE IN DEPRESSIVE SYMPTOMS TO CLINICAL PROVIDER FOR EARLY INTERVENTION. [code = SKILLED NURSE FOR O/A AND SKILLED TEACHING RELATED TO MANAGEMENT OF DEPRESSIVE SYMPTOMS AND/OR DEPRESSION. SN TO REPORT SIGNIFICANT CHANGE IN DEPRESSIVE SYMPTOMS TO CLINICAL PROVIDER FOR EARLY INTERVENTION.] Future Scheduled Test SKILLED NU RSE TO REVIEW PATIENT MEDICATIONS. INSTRUCT PATIENT/CAREGIVER ON MONITORING OF EFFECTIVENESS, ADVERSE DRUG REACTIONS, SIDE EFFECTS OF ALL MEDICATIONS (PRESCRIPTION/-OTC), AND HOW AND WHEN TO REPORT PROBLEMS. [code = SKILLED NURSE TO REVIEW PATIENT MEDICATIONS. INSTRUCT PATIENT/CAREGIVER ON MONITORING OF EFFECTIVENESS, ADVERSE DRUG REACTIONS, SIDE EFFECTS OF ALL MEDICATIONS (PRESCRIPTION/-OTC), AND HOW AND WHEN TO REPORT PROBLEMS.] Future Scheduled Test SKILLED NU RSE TO ASSESS PATIENT S PSYCHOSOCIAL STATUS TO IDENTIFY POTENTIAL ISSUES THAT MAY COMPLICATE THE PROVISION OF THE PLAN OF CARE INCLUDING THE PATIENT S ABILITY TO ACCESS COMMUNITY RESOURCES AND PSYCHOSOCIAL SUPPORT SERVICES. [code = SKILLED NURSE TO ASSESS PATIENT S PSYCHOSOCIAL STATUS TO IDENTIFY POTENTIAL ISSUES THAT MAY COMPLICATE THE PROVISION OF THE PLAN OF CARE INCLUDING THE PATIENT S ABILITY TO ACCESS COMMUNITY RESOURCES AND PSYCHOSOCIAL SUPPORT SERVICES.] Future Scheduled Test SKILLED NU RSE WILL MAINTAIN SITUATIONAL AWARENESS FOR SAFETY AND WILL NOTIFY CLINICAL MARKET RISK SPECIALIST AND PHYSICIAN/PROVIDER WITH ANY CHANGE IN CONDITION. [code = SKILLED NURSE WILL MAINTAIN SITUATIONAL AWARENESS FOR SAFETY AND WILL NOTIFY CLINICAL MARKET RISK SPECIALIST AND PHYSICIAN/PROVIDER WITH ANY CHANGE IN CONDITION.] Goal 2025-02-05 Patient Goal - TAKE MY MEDIC ATION Goal Patient Goal - TAKE MY MEDIC ATION Goal Provider Goal - A PLAN OF CARE WILL BE ESTABLISHED THAT MEETS PATIENT'S RETIREMENT NEEDS AND INCLUDES PATIENT GOAL FOR HOME HEALTH. Goal Provider Goal - ALTERED MENTAL/BEHAVIORAL STATUS WILL BE IDENTIFIED PROMPTLY AND INTERVENTION INITIATED QUICKLY TO MINIMIZE ASSOCIATED RISKS THROUGHOUT CERTIFICATION PERIOD. Goal Provider Goal - PATIENT WILL BE ABLE TO PERFORM DAILY FUNCTIONS AND HAVE OPTIMAL IMPROVEMENT IN MOOD STABILITY THROUGHOUT CERTIFICATION PERIOD. Goal Provider Goal - CHANGE IN GENERAL HEALTH STATUS WILL BE IDENTIFIED AND REPORTED TO PHYSICIAN FOR PROMPT INTERVENTION TO MINIMIZE ASSOCIATED RISKS THROUGHOUT CERTIFICATION PERIOD. Goal Provider Goal - PATIENT WILL REMAIN SAFE WITHOUT DECOMPENSATION IN DEPRESSIVE CONDITION, WHILE MAINTAINING OPTIMAL LEVEL OF MENTAL HEALTH AND WELL BEING THROUGHOUT CERTIFICATION PERIOD. Goal Provider Goal - PATIENT/CAREGIVER WILL VERBALIZE UNDERSTANDING OF EDUCATION PROVIDED ON MEDICATIONS BY THE END OF THE CERTIFICATION PERIOD. Goal Provider Goal - PSYCHOSOCIAL NEEDS WILL BE IDENTIFIED AND PLAN IMPLEMENTED TO MINIMIZE RISK THROUGHOUT CERTIFICATION PERIOD. Goal Provider Goal - PATIENT WILL REMAIN SAFE IN THE COMMUNITY AND WILL BE FREE OF DANGER TO SELF AND OTHERS THROUGHOUT THE CERTIFICATION PERIOD. Encounters Start Date/Time End Date/Time Encounter Type Admission Type Attending [facility] Care Department Encounter ID Discharge Date Discharge Status Discharge Condition Discharge Reason Percent Goals Met 2025-02-06 00:00:00 2025-04-06 00:00:00 Outpatient RECERTIFIC [facility] [id number] [id number]
== END 2025-03-25 01:49 | disposition home or self-care (01) ==
PROVIDERS: Physician Assistant Medical; Emergency Provider Student in an Organized Health Care Education/Training Program
DX: R53.1 Weakness (principal); R53.83 Other fatigue; M54.9 Dorsalgia, unspecified; F70 Mild intellectual disabilities; I10 Essential (primary) hypertension; Z86.718 Personal history of other venous thrombosis and embolism; Z79.01 Long term (current) use of anticoagulants; Z86.711 Personal history of pulmonary embolism; Z59.00 Homelessness unspecified
CPT/HCPCS: 36415; 71046; 80053; 81001; 82550; 84484; 85025; 87502; 87635; 93005; 96360; 96361; 99284; 99285

== ENCOUNTER → 2025-03-24 14:40 | Outpatient (BNV) | payer MEDICAID, SELFPAY | PROVIDERS: Emergency Provider Student in an Organized Health Care Education/Training Program; Visit Provider Internal Medicine | DX: R94.31 Abnormal electrocardiogram [ECG] [EKG] (principal); R07.89 Other chest pain | CPT/HCPCS: 93010 ==

== ENCOUNTER → 2025-03-24 18:18 | Outpatient (BNV) | payer MEDICAID, SELFPAY | PROVIDERS: Emergency Provider Student in an Organized Health Care Education/Training Program; Visit Provider Radiology Diagnostic Radiology | DX: R06.02 Shortness of breath (principal) | CPT/HCPCS: 71046 ==